=== PATIENT | female | born 1935 | race Caucasian/White ===

== ENCOUNTER 2017-08-31 13:29 | Inpatient (IN) | payer MEDICARE, BC ==
[~2017-08-31] VITALS: Ht 154.9 cm; Wt 71.7 kg
--- NOTE | 2017-08-31 13:50 | NUR ---
[facility] FROM [facility] C/O BILAT KNEE SWELLING X 4 DAYS. A/OX 1, BREATHING EVEN AND UNLABORED. NO SOB, NAD, VITALS STABLE. SAFETY AND COMFORT MEASURES IN PLACE. AWAITING MD ORDERS.
[2017-08-31] MEDS ORDERED: CHOL100044 PO (14:21)
[2017-08-31] MEDS ORDERED: GUAI100S27 PO (14:21)
[2017-08-31] MEDS ORDERED: NA P133E RC (14:21)
[2017-08-31] MEDS ORDERED: DOCU250C14 PO (14:21)
[2017-08-31] MEDS ORDERED: MULT-447 PO (14:21)
[2017-08-31] MEDS ORDERED: ESCI5TAB PO (14:21)
[2017-08-31] MEDS ORDERED: FESO4TAB PO (14:21)
[2017-08-31] MEDS ORDERED: MAGN400O6 PO (14:21)
[2017-08-31] MEDS ORDERED: VITA1TAB56 PO (14:21)
[2017-08-31] MEDS ORDERED: DONE5TAB34 PO (14:21)
[2017-08-31] MEDS ORDERED: PHEN26CR RC (14:21)
[2017-08-31] MEDS ORDERED: ACET-868 PO (14:21)
[2017-08-31] MEDS ORDERED: LEVO100T9 PO (14:21)
[2017-08-31] MEDS ORDERED: QUET25TA PO ×2 (14:21→14:22)
--- NOTE | 2017-08-31 14:40 | NUR ---
NEW IV STARTED ON LAC, 20G. BLOOD DRAWN AND SENT TO LAB.
--- NOTE | 2017-08-31 14:45 | NUR ---
MANAGER SOURCING AT BEDSIDE.
[2017-08-31 14:59] LABS: BASOPHILS % (AUTO) 0.5 % (0.0-2.0); EOSINOPHILS % (AUTO) 3.3 % (0.0-6.0); HEMATOCRIT 34 % (33-45); HEMOGLOBIN 11.8 g/dL (11.5-14.8); LYMPHOCYTES # (AUTO) 1.2 /CMM (0.8-4.8); LYMPHOCYTES % (AUTO) 14.1 % (20.0-44.0); MEAN CORPUSCULAR HGB CONC 35 g/dl (31.0-36.0); MEAN CORPUSCULAR VOLUME 89 fL (82-100); MONOCYTES # (AUTO) 0.6 /CMM (0.1-1.30); MONOCYTES % (AUTO) 7.5 % (2.0-12.0); NEUTROPHILS # (AUTO) 6.2 /CMM (1.8-8.9); NEUTROPHILS % (AUTO) 74.6 % (43.0-81.0); PLATELET COUNT (AUTO) 324 /CMM (150-450); RDW COEFFICIENT OF VARIATION 11.7 (11.5-15.0); WHITE BLOOD COUNT (AUTO) 8.4 K/uL (4.3-11.0)
[2017-08-31 15:10] LABS: CALCIUM, SERUM 9.1 mg/dL (8.5-10.1); CARBON DIOXIDE 23 mmol/L (21-32); CHLORIDE 106 mmol/L (98-107); CREATININE 0.9 mg/dL (0.6-1.3); GLUCOSE 85 mg/dL (74-106); POTASSIUM 3.4 mmol/L (3.5-5.1); SODIUM SERUM 139 mmol/L (136-145); UREA NITROGEN, BLOOD 18 mg/dL (7-18)
[2017-08-31 15:49] LABS: INR 1.04 (0.87-1.13)
[2017-08-31] MEDS ORDERED: HEPARIN SODIUM, PORCINE 5000 UNITS/1 ML VIAL ONE (15:53)
[2017-08-31] MEDS ORDERED: HEPARIN SODIUM, PORCINE 5000 UNITS/1 ML VIAL IV ONE (16:00)
--- NOTE | 2017-08-31 16:17 | NUR ---
BED 313-1
--- NOTE | 2017-08-31 16:28 | NUR ---
REPORT GIVEN TO GEORGE MCWILLIAMS FOR CE UPON ADMISSION
--- NOTE | 2017-08-31 16:38 | NUR ---
RN NOTES RECEIVED ED REPORT FROM POPPY MOORE VIA PHONE.
--- NOTE | 2017-08-31 17:20 | NUR ---
PATIENT TRANSPORTED TO [facility] VIA ACLS PROTOCOL. RNGEORGE TO PROVIDE CE.
[2017-08-31 17:42] VITALS: BP 144/76
[2017-08-31] MEDS ORDERED: Z GUARD REMEDY 2 OZ OINT TP PRN ×2 (18:30→20:30)
--- NOTE | 2017-08-31 19:30 | NUR ---
MS RN NOTES RECEIVED ON BED A/O X2-3,BREATHING REGULAR, AT BEDSIDE,SALINE LOCK LAC INTACT AND PATENT.LEFT LEG SWOLLEN NOTED.CONSUMED DINNER FOOD 100%,ASSISTED WITH FEEDING BY .CALL LIGHT IN REACH,NEEDS ANTICIPATED.
--- NOTE | 2017-08-31 19:52 | NUR ---
CERTIFIED NURSES' AIDE/CLOSING NOTES PT. IS IN BED A&OX1, CONFUSED. PT.'S IS AT BEDSIDE. BREATHING UNLABORED, AND EVENLY ON ROOM AIR. IV ACCESS ON LEFT ANTECUBITAL SITE IS INTACT, AND PATENT WITH SALINE FLUSH. BED ALARM IS ON. LEFT LEG IS WARM, AND SWOLLEN, LEFT ANKLE HAS 1+ PITTING EDEMA, AND LEFT FOOT HAS 3+ PITTING EDEMA. BED IS IN LOWEST, AND LOCKED POSITION. 2 SIDE RAILS UP, AND CALL LIGHT WITHIN REACH. WILL ENDORSE REPORT TO NURSE. CODE STATUS WAS ORDERED FOR PT.
[2017-08-31 20:00] VITALS: BP_SYST 121; BP_SYST 123; BP_DIAS 72; BP_DIAS 87
[2017-08-31] MEDS ORDERED: QUETIAPINE FUMARATE 25 MG TABLET PO PRN (20:30)
[2017-08-31] MEDS ORDERED: MAGNESIUM HYDROXIDE 30 ML UDC PO PRN (20:30)
[2017-08-31] MEDS ORDERED: ACETAMINOPHEN 325 MG TABLET PO PRN (20:30)
[2017-08-31] MEDS ORDERED: ONDANSETRON HCL/PF 4 MG/2 ML VIAL IVP PRN (20:30)
--- NOTE | 2017-08-31 21:00 | NUR ---
MS RN NOTES STARTED ON XARELTO 15MG PO ORDERED FOR DVT PROHYLAXIS.
[2017-08-31] MEDS: RIVAROXABAN 15 MG TABLET PO SCH (21:27)
[2017-08-31 22:08] VITALS: BP 121/87
[2017-09-01] VITALS: BP 132/62
--- NOTE | 2017-09-01 01:00 | NUR ---
MS RN NOTES SOUND ASLEEP,KEPT WARM AND COMFORTABLE.
--- NOTE | 2017-09-01 06:33 | NUR ---
MS RN NOTES SLEPT WELL AT [facility].LEFT LEG REMAINS SWOLLEN.DENIES PAIN,DNR/DNI.IN NO ACUTE DISTRESS.WILL ENDORSE TO DAY NURSE FOR CE.
[2017-09-01 06:44] LABS: BASOPHILS % (AUTO) 0.7 % (0.0-2.0); EOSINOPHILS % (AUTO) 6.4 % (0.0-6.0); HEMATOCRIT 34 % (33-45); HEMOGLOBIN 11.7 g/dL (11.5-14.8); LYMPHOCYTES # (AUTO) 1.3 /CMM (0.8-4.8); LYMPHOCYTES % (AUTO) 20.4 % (20.0-44.0); MEAN CORPUSCULAR HGB CONC 35 g/dl (31.0-36.0); MEAN CORPUSCULAR VOLUME 90 fL (82-100); MONOCYTES # (AUTO) 0.5 /CMM (0.1-1.30); MONOCYTES % (AUTO) 8.3 % (2.0-12.0); NEUTROPHILS # (AUTO) 4.2 /CMM (1.8-8.9); NEUTROPHILS % (AUTO) 64.2 % (43.0-81.0); PLATELET COUNT (AUTO) 293 /CMM (150-450); RDW COEFFICIENT OF VARIATION 12.3 (11.5-15.0); RED BLOOD CELL COUNT(AUTO) 3.76 MIL/uL (4.0-5.2); WHITE BLOOD COUNT (AUTO) 6.5 K/uL (4.3-11.0)
[2017-09-01 07:08] LABS: ALANINE AMINOTRANSFERASE 20 U/L (12-78); ALBUMIN 2.8 g/dL (3.4-5.0); ALKALINE PHOSPHATASE 70 U/L (46-116); ASPARTATE AMINOTRANSFERASE 21 U/L (15-37); BILIRUBIN,TOTAL 0.3 mg/dL (0.2-1.0); CALCIUM, SERUM 8.9 mg/dL (8.5-10.1); CARBON DIOXIDE 25 mmol/L (21-32); CHLORIDE 107 mmol/L (98-107); CREATININE 0.8 mg/dL (0.6-1.3); GLUCOSE 83 mg/dL (74-106); MAGNESIUM 3.1 mg/dL (1.8-2.4); PHOSPHORUS 3.8 mg/dL (2.5-4.9); POTASSIUM 3.5 mmol/L (3.5-5.1); SODIUM SERUM 140 mmol/L (136-145); TOTAL PROTEIN, SERUM 6.9 g/dL (6.4-8.2); UREA NITROGEN, BLOOD 16 mg/dL (7-18)
[2017-09-01 07:15] LABS: CHOLESTEROL 217 mg/dL (<200); HDL CHOLESTEROL 57 mg/dL (40-60); LDL 150 mg/dL (0-99); THYROID STIMULATING HORMONE 1.965 uIU/mL (0.358-3.74); TRIGLYCERIDES 56 mg/dL (30-150)
--- NOTE | 2017-09-01 07:27 | NUR ---
RN OPENING NOTES RECEIVED PT. IN BED A&OX1, CONFUSED. BREATHING UNLABORED, AND EVENLY ON ROOM AIR. IV ACCESS ON LEFT ANTECUBITAL SITE IS INTACT, AND PATENT WITH SALINE FLUSH. BED ALARM IS ON. BED IS IN LOWEST, AND LOCKED POSITION. 2 SIDE RAILS UP, AND CALL LIGHT WITHIN REACH. WILL CONTINUE TO ASSESS AND MONITOR.
[2017-09-01] MEDS: LEVOTHYROXINE SODIUM 100 MCG TABLET PO SCH (07:35)
[2017-09-01] MEDS: PANTOPRAZOLE 40 MG TABLET.DR PO SCH (07:35)
[2017-09-01 07:57] LABS: IRON, SERUM 55 ug/dl (50-175); TOTAL IRON BINDING CAPACITY 218 ug/dl (250-450)
[2017-09-01 08:00] VITALS: BP 130/66
[2017-09-01] MEDS: DONEPEZIL 5 MG TABLET PO SCH ×2 (09:11→16:50)
[2017-09-01] MEDS: RIVAROXABAN 15 MG TABLET PO SCH ×2 (09:12→16:50)
[2017-09-01] MEDS: ESCITALOPRAM OXALATE (10 MG) 10 MG TABLET PO SCH (09:12)
--- NOTE | 2017-09-01 12:16 | NUR ---
POWER OF METAL LEAF LAYER DOCUMENTS WERE PROVIDED BY PT.'S , CORNEL RAHMAN, AND PLACED IN CHART.
[2017-09-01 16:00] VITALS: BP 126/69
[2017-09-01] MEDS ORDERED: QUETIAPINE FUMARATE 25 MG TABLET PO SCH (18:00)
--- NOTE | 2017-09-01 18:56 | NUR ---
RN CLOSING NOTES PT. IS IN BED A&OX1, CONFUSED. PT.'S IS AT BEDSIDE. BREATHING IS UNLABORED, AND EVEN ON ROOM AIR. IV ACCESS ON LEFT ANTECUBITAL SITE IS INTACT, AND PATENT WITH SALINE FLUSH. BED ALARM IS ON. BED IS IN LOWEST, AND LOCKED POSITION. 2 SIDE RAILS UP, AND CALL LIGHT WITHIN REACH. WILL ENDORSE REPORT TO NURSE.
[2017-09-01 19:48] VITALS: BP 129/60
--- NOTE | 2017-09-01 19:50 | NUR ---
MS RN NOTES RECEIVED ON BED A/O X1-2,CONFUSED.LEFT LEG WITH +2 EDEMA NOTED,POSITIVE FOR DVT,ON XARELTO. AT BEDSIDE AT BEDSIDE.CALL LIGHT IN REACH,NEEDS ANTICIPATED.
[2017-09-01 20:00] VITALS: BP 129/60
--- NOTE | 2017-09-02 01:00 | NUR ---
MS MCWILLIAMS NOTES BODY CHECKED DONE .NEGATIVE FOR SKIN REDNESS.LEFT SWELLING SUBSIDING.CONTINUE TO ELEVATE ON PILLOWS Addendum: 09/02/17 at 0610 by MELVIN SINGH RN LEFT LOWER LEG SWELLING DECREASED
--- NOTE | 2017-09-02 06:10 | NUR ---
MS RN NOTES CALM AND QUIET THRU OUT SHIFT.NO FALL,NO INJURY.HAD BM.REPOSITION PER PROTOCOL,RIGHT INNER THIGH REDNESS SUBSIDED.IN NO ACUTE DISTRESS.WILL ENDORSE TO DAY NURSE FOR CE.
[2017-09-02 06:20] LABS: BASOPHILS % (AUTO) 0.4 % (0.0-2.0); HEMATOCRIT 33 % (33-45); HEMOGLOBIN 11.4 g/dL (11.5-14.8); LYMPHOCYTES # (AUTO) 1.5 /CMM (0.8-4.8); LYMPHOCYTES % (AUTO) 19.2 % (20.0-44.0); MEAN CORPUSCULAR HGB CONC 35 g/dl (31.0-36.0); MEAN CORPUSCULAR VOLUME 89 fL (82-100); MONOCYTES # (AUTO) 0.7 /CMM (0.1-1.30); MONOCYTES % (AUTO) 8.7 % (2.0-12.0); NEUTROPHILS # (AUTO) 5.1 /CMM (1.8-8.9); NEUTROPHILS % (AUTO) 65.7 % (43.0-81.0); PLATELET COUNT (AUTO) 286 /CMM (150-450); RDW COEFFICIENT OF VARIATION 12.4 (11.5-15.0); RED BLOOD CELL COUNT(AUTO) 3.65 MIL/uL (4.0-5.2); WHITE BLOOD COUNT (AUTO) 7.8 K/uL (4.3-11.0)
[2017-09-02 06:51] LABS: CALCIUM, SERUM 8.9 mg/dL (8.5-10.1); CARBON DIOXIDE 24 mmol/L (21-32); CHLORIDE 108 mmol/L (98-107); CREATININE 0.9 mg/dL (0.6-1.3); GLUCOSE 83 mg/dL (74-106); MAGNESIUM 2.1 mg/dL (1.8-2.4); PHOSPHORUS 3.7 mg/dL (2.5-4.9); POTASSIUM 3.9 mmol/L (3.5-5.1); SODIUM SERUM 140 mmol/L (136-145); UREA NITROGEN, BLOOD 15 mg/dL (7-18)
[2017-09-02 08:00] VITALS: BP 134/53
--- NOTE | 2017-09-02 08:00 | NUR ---
m/s clutch inspector: initial assessment received pt in bed awake, alert to self only with confusion and disorientation to time, place, and situation. reality orientation provided prn. no s/s of discomfort. instructed to call for assistance. will continue to monitor.
[2017-09-02] MEDS: LEVOTHYROXINE SODIUM 100 MCG TABLET PO SCH (08:12)
[2017-09-02] MEDS: ESCITALOPRAM OXALATE (10 MG) 10 MG TABLET PO SCH (08:13)
[2017-09-02] MEDS: PANTOPRAZOLE 40 MG TABLET.DR PO SCH (08:13)
[2017-09-02] MEDS: RIVAROXABAN 15 MG TABLET PO SCH (08:13)
[2017-09-02] MEDS: DONEPEZIL 5 MG TABLET PO SCH (08:13)
--- NOTE | 2017-09-02 09:59 | NUR ---
WOUND CARE CONSULT: PT PRESENTS WITH INCONTINENCE. PT ABLE TO ASSIST SLIGHTLY WITH TURNING AND REPOSITIONING IN BED. ALL SKIN PROTECTION MEASURES IN PLACE AND DISCUSSED WITH NURSING STAFF. WILL SEE PRN. BECKHAM IN AGREEMENT WITH PLAN OF CARE. Addendum: 09/02/17 at 1000 by LISA LERMA WNDNU Amended: Links added.
[2017-09-02] MEDS ORDERED: Rivaroxaban PO (12:44)
--- NOTE | 2017-09-02 12:44 | NUR ---
m/s laborer chicken farm: md visit dr. gross at bedside and talking to and aware of d'c to assisted living today. order acknowledged.
--- NOTE | 2017-09-02 13:00 | NUR ---
m/s sunday school missionary: notes kierra (case management) arranged ambulance to bring pt to assisted living facility. remains at bedside and aware.
--- NOTE | 2017-09-02 13:30 | NUR ---
m/s aluminum molder: notes remains at bedside. awaiting for ambulance. pt unable to sign discharge papers due to cognitive impairment. 2 licensed signed all d'c papers. will continue to monitor.
--- NOTE | 2017-09-02 13:42 | NUR ---
m/s load tester: notes [facility] notified and made aware re: d'c back today, spoke to asha. remains at bedside. will continue to monitor.
--- NOTE | 2017-09-02 14:00 | NUR ---
m/s pharmacist technician: notes [facility] reminder for next week given to and will arrange transportation as stated.
--- NOTE | 2017-09-02 15:15 | NUR ---
m/s bearing machine operator: notes ambulance here and report given to one of the crew. h/l removed with tip intact with no swelling, no redness, and no bleeding noted.
--- NOTE | 2017-09-02 15:30 | NUR ---
m/s web retailer: discharged discharged back to assisted living facility via ambulance in stable condition with all d'c papers and belongings accompanied by 3 crew.
== END 2017-09-02 15:30 | DRG 299 ==
LOC: ER 13:34 → TELE 16:25 → MED 21:19
PROVIDERS: ADMIT Nurse Practitioner Acute Care; ATTEND Nurse Practitioner Acute Care
DX: I82.432 Acute embolism and thrombosis of left popliteal vein (principal); I62.00 Nontraumatic subdural hemorrhage, unspecified; I82.412 Acute embolism and thrombosis of left femoral vein; G30.9 Alzheimer's disease, unspecified; F02.80 Dementia in other diseases classified elsewhere, unspecified severity, without behavioral disturbance, psychotic disturbance, mood disturbance, and anxiety; R00.1 Bradycardia, unspecified; Z91.040 Latex allergy status; Z88.5 Allergy status to narcotic agent; Z91.048 Other nonmedicinal substance allergy status; Z79.899 Other long term (current) drug therapy; F32.9 Major depressive disorder, single episode, unspecified; E66.9 Obesity, unspecified; Z68.29 Body mass index [BMI] 29.0-29.9, adult; I10 Essential (primary) hypertension
CPT/HCPCS: 36415; 71045-TC; 80048-TC; 80053-TC; 80061-TC; 83540-TC; 83735-TC; 84100-TC; 84443-TC; 85025-TC; 85730-TC; 87081-TC; 93307-TC; 93971-TC; A4606; J1644; Z7610

== ENCOUNTER 2019-01-15 01:04 | Emergency (ER) | payer MEDICARE, BC ==
[~2019-01-15] VITALS: Ht 154.9 cm; Wt 69.9 kg
[~2019-01-15 01:04] MED LIST: ACET-868 PO; CHOL100044 PO; DOCU250C14 PO; DONE5TAB34 PO; ESCI5TAB PO; FESO4TAB PO; LEVO100T9 PO; MAGN400O6 PO; MULT-447 PO; NA P133E RC; PHEN26CR RC; QUET25TA PO; Rivaroxaban PO; VITA1TAB56 PO; [UNRECOGNIZED DRUG - CODE] PO
[2019-01-15] MEDS ORDERED: MORPHINE SULFATE INJ 4 MG/ML DISP.SYRIN ONE (01:43)
--- NOTE | 2019-01-15 01:45 | NUR ---
BIBA FOR EVALUATION OF BACK PAIN. PER , PT HAS BEEN UNCOMFORTABLE AND MOANING SINC EVENING . PT HAS A COMPRESSION FRACTURE ON LOWER VERTEBRAE SINCE 2 YRS AGO. NO RECENT FALL OR INJURY. PER AL STAFF, PT HAS MORE SIGN OF PAIN WHEN LEANING FORWARD.
[2019-01-15] MEDS ORDERED: MORPHINE SULFATE INJ 2 MG/ML DISP.SYRIN IM ONE (02:00)
--- NOTE | 2019-01-15 02:45 | NUR ---
TRANSPORT CALLED ([facility]) ETA [id number]. TRIP#[id number]
--- NOTE | 2019-01-15 03:36 | NUR ---
Patient is resting comfortably in bed with eyes closed. Easily aroused. VSS
--- NOTE | 2019-01-15 03:47 | NUR ---
REPORT GIVEN TO EMT FROM [facility]
--- NOTE | 2019-01-15 04:06 | NUR ---
Patient discharged back to the facility in stable condition. pt was picked up by kasandra via [facility]. Written and verbal after care instructions given. verbalized understanding of instruction.
[2019-01-15 04:07] VITALS: BP 151/82
[2019-02-06] MEDS ORDERED: CEPH-570 PO (11:23)
== END 2019-01-15 04:08 | disposition home or self-care (01) ==
LOC: ER 01:05
DX: M54.5 Low back pain (principal); G89.29 Other chronic pain; G30.9 Alzheimer's disease, unspecified; F02.80 Dementia in other diseases classified elsewhere, unspecified severity, without behavioral disturbance, psychotic disturbance, mood disturbance, and anxiety; R00.1 Bradycardia, unspecified; I10 Essential (primary) hypertension; Z88.5 Allergy status to narcotic agent; Z91.040 Latex allergy status; Z91.048 Other nonmedicinal substance allergy status
CPT/HCPCS: 72100; 96372; 99283; J2270

== ENCOUNTER 2019-02-03 19:35 | Inpatient (IN) | payer MEDICARE, BC ==
[~2019-02-03] VITALS: Ht 152.4 cm; Wt 71.7 kg
[~2019-02-03 19:35] MED LIST changes: +GUAI100S27 PO; -[UNRECOGNIZED DRUG - CODE] PO
--- NOTE | 2019-02-03 19:35 | NUR ---
PT BIBRA FROM FACILITY C/O FEVER STARTED 5 HRS AGO, PT IS AAOX1, NOT IN RESPIRATORY DISTRESS, HOOKED TO MONITOR, KEPT RESTED AND COMFORTABLE, WILL CONTINUE TO MONITOR.
--- NOTE | 2019-02-03 19:44 | NUR ---
SEEN AND EXAMINED BY .
--- NOTE | 2019-02-03 19:50 | NUR ---
IV LINE ESTABLISHED, BLOOD DRAWN AND SENT TO LAB.
[2019-02-03] MEDS ORDERED: ACETAMINOPHEN 650 MG/SUPP.RECT RC ONE ×2 (20:00→20:02)
[2019-02-03] MEDS ORDERED: IV NS 0.9% 1,000 ML BAG IV ONE (20:00)
[2019-02-03 20:05] LABS: BASOPHILS # (AUTO) 0.1 /CMM (0.0-0.2); EOSINOPHILS % (AUTO) 1.1 % (0.0-6.0); HEMATOCRIT 41 % (33-45); HEMOGLOBIN 13.7 g/dL (11.5-14.8); LYMPHOCYTES # (AUTO) 1.1 /CMM (0.8-4.8); LYMPHOCYTES % (AUTO) 12.6 % (20.0-44.0); MEAN CORPUSCULAR HGB CONC 34 g/dl (31.0-36.0); MEAN CORPUSCULAR VOLUME 93 fL (82-100); MONOCYTES # (AUTO) 0.5 /CMM (0.1-1.30); MONOCYTES % (AUTO) 6.1 % (2.0-12.0); NEUTROPHILS # (AUTO) 6.6 /CMM (1.8-8.9); NEUTROPHILS % (AUTO) 79.2 % (43.0-81.0); PLATELET COUNT (AUTO) 240 /CMM (150-450); WHITE BLOOD COUNT (AUTO) 8.4 K/uL (4.3-11.0)
[2019-02-03 20:15] LABS: CARBON DIOXIDE 22 mmol/L (21-32); CHLORIDE 106 mmol/L (98-107); GLUCOSE 133 mg/dL (74-106); POTASSIUM 3.2 mmol/L (3.5-5.1); SODIUM SERUM 141 mmol/L (136-145); UREA NITROGEN, BLOOD 23 mg/dL (7-18)
[2019-02-03 20:20] LABS: CALCIUM, SERUM 8.9 mg/dL (8.5-10.1)
--- NOTE | 2019-02-03 20:21 | NUR ---
URINE SPECIMEN COLLECTED AND SENT TO LAB.
[2019-02-03 20:22] LABS: ALANINE AMINOTRANSFERASE 20 U/L (12-78); ALBUMIN 3.5 g/dL (3.4-5.0); ALKALINE PHOSPHATASE 108 U/L (46-116); ASPARTATE AMINOTRANSFERASE 22 U/L (15-37); BILIRUBIN,DIRECT 0.1 mg/dL (0.0-0.2); BILIRUBIN,TOTAL 0.3 mg/dL (0.2-1.0); TOTAL PROTEIN, SERUM 7.4 g/dL (6.4-8.2)
[2019-02-03] MEDS ORDERED: RIVA10TA PO (20:29)
--- NOTE | 2019-02-03 20:30 | NUR ---
SOFA INSPECTOR AT BEDSIDE FOR XRAY.
[2019-02-03 20:35] LABS: APPEARANCE,URINE Cloudy (CLEAR); BILIRUBIN,URINE Negative (NEGATIVE); BLOOD, URINE Moderate Ery/uL (NEGATIVE); COLOR,URINE Yellow (YELLOW); KETONES,URINE Negative (NEGATIVE); LEUKOCYTE ESTERASE ,URINE Moderate (NEGATIVE); NITRITE, URINE Positive (NEGATIVE); PH,URINE 5.5 (5.0-8.0); PROTEIN,URINE Negative (NEGATIVE); UGLUCOSE Negative (NEGATIVE)
[2019-02-03 20:42] LABS: BACTERIA,URINE 4+ /HPF (None Seen); SQUAMOUS EPITHELIAL CELL,UR Few /HPF (None Seen); WBC,URINE 51-80 /HPF (0-3)
[2019-02-03] MEDS ORDERED: CEFTRIAXONE 1GM BAG (ER ONLY) 50 ML IV ONE ×2 (20:51→21:00)
--- NOTE | 2019-02-03 21:13 | NUR ---
CALLED FOR TELE BED
--- NOTE | 2019-02-03 21:36 | NUR ---
REPORT GIVEN TO POPPY TROTTER FOR CE.
--- NOTE | 2019-02-03 21:45 | NUR ---
WALL WASHER NOTES RECEIVED PT FROM ER VIA [facility] WITH FAMILY AT BEDSIDE. RESPIRATIONS EVEN AND UNLABORED WITH NO S/S OF ACUTE DISTRESS OR SOB NOTED. PT ON TELE MONITORING WITH SR @63. NO S/S OF PAIN AT THIS TIME. PT WITH AMEENA #18G PATENT AND INTACT AND SL. ORIENTED FAMILY TO UNIT AND STAFF. PER FAMILY PT NEEDS HELP WITH EATING. SAFETY MEASURES IN PLACE WITH BED IN LOWEST LOCKED POSITION WITH SIDE RAILS UP X2. CALL LIGHT WITHIN REACH. WILL CONTINUE TO MONITOR.
[2019-02-03 21:50] VITALS: BP 146/71
[2019-02-03] MEDS ORDERED: NA PHOS,M-B/NA PHOS,DI-BA 1 EA ENEMA RC PRN (23:00)
[2019-02-03] MEDS ORDERED: MORPHINE SULFATE INJ 2 MG/ML DISP.SYRIN IV PRN (23:00)
[2019-02-03] MEDS ORDERED: ONDANSETRON HCL/PF 4 MG/2 ML VIAL IVP PRN (23:00)
[2019-02-03] MEDS ORDERED: ACETAMINOPHEN 325 MG TABLET PO PRN ×2 (23:00)
[2019-02-03] MEDS ORDERED: MAGNESIUM HYDROXIDE 30 ML UDC PO PRN (23:00)
[2019-02-04 00:01] VITALS: BP 143/77
[2019-02-04 04:05] VITALS: BP 156/76
[2019-02-04 06:35] LABS: BASOPHILS # (AUTO) 0.1 /CMM (0.0-0.2); BASOPHILS % (AUTO) 0.8 % (0.0-2.0); EOSINOPHILS % (AUTO) 2.4 % (0.0-6.0); HEMATOCRIT 34 % (33-45); HEMOGLOBIN 11.8 g/dL (11.5-14.8); LYMPHOCYTES # (AUTO) 1.6 /CMM (0.8-4.8); LYMPHOCYTES % (AUTO) 20.9 % (20.0-44.0); MEAN CORPUSCULAR HGB CONC 35 g/dl (31.0-36.0); MEAN CORPUSCULAR VOLUME 92 fL (82-100); MONOCYTES # (AUTO) 0.7 /CMM (0.1-1.30); MONOCYTES % (AUTO) 8.7 % (2.0-12.0); NEUTROPHILS # (AUTO) 5.2 /CMM (1.8-8.9); NEUTROPHILS % (AUTO) 67.2 % (43.0-81.0); PLATELET COUNT (AUTO) 216 /CMM (150-450); WHITE BLOOD COUNT (AUTO) 7.8 K/uL (4.3-11.0)
[2019-02-04 07:11] LABS: CHOLESTEROL 196 mg/dL (<200); HDL CHOLESTEROL 67 mg/dL (40-60); LDL 118 mg/dL (0-99); THYROID STIMULATING HORMONE 0.904 uIU/mL (0.358-3.74); TRIGLYCERIDES 26 mg/dL (30-150)
[2019-02-04 07:23] LABS: ALANINE AMINOTRANSFERASE 16 U/L (12-78); ALBUMIN 2.8 g/dL (3.4-5.0); ALKALINE PHOSPHATASE 86 U/L (46-116); ASPARTATE AMINOTRANSFERASE 19 U/L (15-37); B-TYPE NATRIURETIC PEPTIDE 330 PG/ML (0-125); BILIRUBIN,TOTAL 0.3 mg/dL (0.2-1.0); CALCIUM, SERUM 8.5 mg/dL (8.5-10.1); CARBON DIOXIDE 22 mmol/L (21-32); CHLORIDE 110 mmol/L (98-107); CREATININE 0.7 mg/dL (0.6-1.3); GLUCOSE 85 mg/dL (74-106); MAGNESIUM 1.9 mg/dL (1.8-2.4); PHOSPHORUS 2.9 mg/dL (2.5-4.9); POTASSIUM 3.1 mmol/L (3.5-5.1); SODIUM SERUM 144 mmol/L (136-145); TOTAL PROTEIN, SERUM 6.3 g/dL (6.4-8.2); UREA NITROGEN, BLOOD 17 mg/dL (7-18)
--- NOTE | 2019-02-04 07:40 | NUR ---
HISTORIOGRAPHY PROFESSOR NOTES PATIENT RECEIVED RESTING INSIDE ROOM. SLEEPING, EASILY AROUSABLE THROUGH VERBAL AND TACTILE STIMULI. NO ACUTE DISTRESS. DENIES ANY PAIN OR DISCOMFORT. PATIENT CALM AND RELAXED. SAFETY PRECAUTIONS IN PLACE. BED ALARM ON. WILL CONTINUE TO MONITOR. BED LOCKED AND IN LOW POSITION. BILATERAL UPPER SIDE RAILS UP AND LOCKED. CALL LIGHT WITHIN EASY REACH
--- NOTE | 2019-02-04 07:59 | NUR ---
MICROFILM CLERK NOTES PATIENT WITH NEW ORDER FROM DR LUNA FOR LOVENOX. DR LUNA MADE AWARE THAT PATIENT IS ALREADY ON XARELTO DAILY. WITH NEW ORDER TO DC LOVENOX. NOTED AND CARRIED OUT. WILL CONTINUE TO MONITOR
[2019-02-04 08:00] VITALS: BP 160/80
[2019-02-04] MEDS ORDERED: ENOXAPARIN SODIUM 40 MG/0.4 ML DISP.SYRIN SQ SCH (08:00)
--- NOTE | 2019-02-04 08:07 | NUR ---
FURNITURE SANDER NOTES PT IN BED ASLEEP BUT EASILY AWOKEN VERBALLY OR BY TOUCH. RESPIRATIONS EVEN AND UNLABORED WITH NO S/S OF ACUTE DISTRESS OR SOB NOTED THROUGHOUT SHIFT. PT ON TELE MONITORING WITH SR @61. NO S/S OF PAIN AT THIS TIME. PT WITH LHAND #18G PATENT AND INTACT AND SL. TURNED PT Q2 HOURS THROUGHOUT SHIFT. PT KEPT CLEAN, DRY, AND COMFORTABLE. SAFETY MEASURES IN PLACE WITH BED IN LOWEST LOCKED POSITION WITH SIDE RAILS UP X2. CALL LIGHT WITHIN REACH. WILL ENDORSE TO ONCOMING NURSE FOR CE.
[2019-02-04] MEDS: MULTIVIT W/MINERALS 1 TAB TABLET PO SCH (08:36)
[2019-02-04] MEDS: POTASSIUM CHLORIDE 20 MEQ TAB.PRT.SR PO SCH ×3 (08:36→10:38)
[2019-02-04] MEDS: CHOLECALCIFEROL 1,000 UNIT TABLET (VIT D3) PO SCH (08:36)
[2019-02-04] MEDS: ESCITALOPRAM OXALATE (10 MG) 10 MG TABLET PO SCH (08:36)
[2019-02-04] MEDS: DONEPEZIL 5 MG TABLET PO SCH ×2 (08:36→16:25)
[2019-02-04] MEDS: LEVOTHYROXINE SODIUM 100 MCG TABLET PO SCH (08:36)
[2019-02-04] MEDS: RIVAROXABAN 10 MG TABLET PO SCH (08:37)
[2019-02-04] MEDS ORDERED: Medication Not On Formulary EA (Fesoterodine Fumarate (Toviaz) 4 MG) PO SCH (09:00)
[2019-02-04] MEDS ORDERED: DOCUSATE SODIUM 250 MG CAPSULE PO SCH (09:00)
--- NOTE | 2019-02-04 09:14 | NUR ---
WOUND CARE CONSULT: PT PRESENTS WITH INTACT SKIN, SOME DISCOLORATION TO FOREHEAD AND LEFT ARM, PRESENT ON ADMISSION. PT IS INCONTINENT. RECOMMENDATIONS MADE FOR SKIN PROTECTION. DISCUSSED WITH NURSING STAFF. WILL SEE PRN. CURRENT NIKIA SCORE IS 13. MD IN AGREEMENT WITH PLAN OF CARE. Addendum: 02/04/19 at 0916 by LISA LERMA WNDNU Amended: Links added.
[2019-02-04] MEDS ORDERED: Z GUARD REMEDY 2 OZ OINT TP PRN (09:30)
[2019-02-04] MEDS: Z GUARD REMEDY 2 OZ OINT TP SCH (10:04)
[2019-02-04] MEDS: NITROGLYCERIN 30 GM TUBE TP SCH ×2 (10:05→21:01)
[2019-02-04 11:59] VITALS: BP 123/70
[2019-02-04] MEDS: TOVIAZ 4 MG PO SCH (13:47)
[2019-02-04 16:00] VITALS: BP 123/72
--- NOTE | 2019-02-04 18:52 | NUR ---
ORTHO/PROSTHETIC AIDE CLOSING NOTES PATIENT RESTING IN BED. AT THE BEDSIDE. SHOWS NO SIGN OF RESPIRATORY DISTRESS O2 SATURATION REMAINS >95% ON RA. NSR 82. ALL DUE MEDS GIVEN ORDERED. IV IS CLEAN AND INTACT SHOWS NO SIGN OF INFILTRATION. BED IS IN LOWEST POSITION. SIDE RAILS X2 IN UPRIGHT POSITION. CALL LIGHT IS WITHIN REACH. WILL ENDORSE TO PYRIDINE OPERATOR.
--- NOTE | 2019-02-04 19:32 | NUR ---
RN OPENING NOTES RECEIVED PT IN BED, AWAKE ALERT ORIENTED X1, AT BEDSIDE. BREATHING EVEN AND UNLABORED ON ROOM AIR. NO COMPLAINT OF PAIN OR DISCOMFORT AT THIS TIME. IV ACCESS ON THE L HAND 18G SL. BED IN LOWEST LOCKED POSITION, CALL LIGHT WITHIN REACH AT ALL TIMES, REPOSITIONED FOR COMFORT, WILL CONTINUE TO MONITOR FREQUENTLY.
[2019-02-04 20:00] VITALS: BP 140/75
[2019-02-04] MEDS: CEFTRIAXONE 1 G in IV D5W 50 ML IV SCH (20:44)
[2019-02-05] VITALS: BP 113/61
[2019-02-05 04:00] VITALS: BP 122/64
[2019-02-05 06:31] LABS: BASOPHILS % (AUTO) 0.7 % (0.0-2.0); HEMATOCRIT 34 % (33-45); HEMOGLOBIN 11.7 g/dL (11.5-14.8); LYMPHOCYTES # (AUTO) 1.2 /CMM (0.8-4.8); LYMPHOCYTES % (AUTO) 16.7 % (20.0-44.0); MEAN CORPUSCULAR HGB CONC 35 g/dl (31.0-36.0); MEAN CORPUSCULAR VOLUME 92 fL (82-100); MONOCYTES # (AUTO) 0.7 /CMM (0.1-1.30); MONOCYTES % (AUTO) 10.4 % (2.0-12.0); NEUTROPHILS # (AUTO) 4.8 /CMM (1.8-8.9); NEUTROPHILS % (AUTO) 68.2 % (43.0-81.0); PLATELET COUNT (AUTO) 196 /CMM (150-450); RED BLOOD CELL COUNT(AUTO) 3.67 MIL/uL (4.0-5.2); WHITE BLOOD COUNT (AUTO) 7.1 K/uL (4.3-11.0)
--- NOTE | 2019-02-05 06:49 | NUR ---
RN CLOSING NOTES PT REMAINS IN BED, SLEEPING, EASILY AROUSED TO NAME CALL. BREATHING EVEN AND UNLABORED ON ROOM AIR. NO COMPLAINT OF PAIN OR DISCOMFORT AT THIS TIME. IV ACCESS ON THE L WRIST 20G. BED IN LOWEST LOCKED POSITION, CALL LIGHT WITHIN REACH AT ALL TIMES, REPOSITIONED FOR COMFORT, WILL ENDORSE TO DAY NURSE FOR CE
[2019-02-05 06:51] LABS: ALANINE AMINOTRANSFERASE 17 U/L (12-78); ALBUMIN 2.9 g/dL (3.4-5.0); ALKALINE PHOSPHATASE 86 U/L (46-116); ASPARTATE AMINOTRANSFERASE 16 U/L (15-37); BILIRUBIN,TOTAL 0.4 mg/dL (0.2-1.0); CALCIUM, SERUM 8.4 mg/dL (8.5-10.1); CARBON DIOXIDE 22 mmol/L (21-32); CHLORIDE 109 mmol/L (98-107); CREATININE 0.8 mg/dL (0.6-1.3); GLUCOSE 83 mg/dL (74-106); MAGNESIUM 1.9 mg/dL (1.8-2.4); PHOSPHORUS 2.9 mg/dL (2.5-4.9); POTASSIUM 3.5 mmol/L (3.5-5.1); SODIUM SERUM 143 mmol/L (136-145); TOTAL PROTEIN, SERUM 6.3 g/dL (6.4-8.2); UREA NITROGEN, BLOOD 13 mg/dL (7-18)
--- NOTE | 2019-02-05 07:31 | NUR ---
TICKET COLLECTOR NOTES PATIENT RECEIVED RESTING INSIDE ROOM. AWAKE, ALERT AND ORIENTED X 0-1. VERBALLY RESPONSIVE WITH 1-2 WORDS, NO ACUTE DISTRESS, DENIES ANY PAIN OR DISCOMFORT, NO FACIAL GRIMACE NOTED. PATIENT CALM AND RELAXED. SAFETY PRECAUTIONS IN PLACE. WILL CONTINUE TO MONITOR. BED LOCKED AND IN LOW POSITION. BILATERAL UPPER SIDE RAIL UP AND LOCKED. CALL LIGHT WITHIN EASY REACH
[2019-02-05 08:00] VITALS: BP 145/84
[2019-02-05] MEDS: DOCUSATE SODIUM LIQ 100 MG/10 ML UDC PO SCH (08:38)
[2019-02-05] MEDS: MULTIVIT W/MINERALS 1 TAB TABLET PO SCH (08:46)
[2019-02-05] MEDS: LEVOTHYROXINE SODIUM 100 MCG TABLET PO SCH (08:46)
[2019-02-05] MEDS: DONEPEZIL 5 MG TABLET PO SCH ×2 (08:46→17:32)
[2019-02-05] MEDS: ESCITALOPRAM OXALATE (10 MG) 10 MG TABLET PO SCH (08:46)
[2019-02-05] MEDS: CHOLECALCIFEROL 1,000 UNIT TABLET (VIT D3) PO SCH (08:46)
[2019-02-05] MEDS: RIVAROXABAN 10 MG TABLET PO SCH (08:48)
[2019-02-05] MEDS: TOVIAZ 4 MG PO SCH (08:49)
[2019-02-05] MEDS: Z GUARD REMEDY 2 OZ OINT TP SCH (08:49)
[2019-02-05] MEDS: NITROGLYCERIN 30 GM TUBE TP SCH ×2 (08:50→20:57)
[2019-02-05 09:00] VITALS: BP 145/84
[2019-02-05] MEDS ORDERED: TOLTERODINE 2 MG CAP.SR PO SCH (09:00)
[2019-02-05 16:00] VITALS: BP 123/79
--- NOTE | 2019-02-05 18:28 | NUR ---
M/S RN CLOSING NOTES PATIENT RESTING IN BED. AWAKE, AROUSABLE THROUGH VERBAL AND TACTILE STIMULI. NO ACUTE DISTRESS. DENIES ANY PAIN OR DISCOMFORT, NO FACIAL GRIMACE NOTED. AT THE BEDSIDE. BED IS IN LOWEST POSITION. SIDE RAILS X2 IN UPRIGHT POSITION. CALL LIGHT IS WITHIN REACH. PATIENT ASSISTED TO A COMFORTABLE POSITION Q2 FOR POSITIONING AND COMFORT. WILL ENDORSE TO INCOMING NURSE ABOUT CE.
[2019-02-05 20:00] VITALS: BP 158/88
--- NOTE | 2019-02-05 20:00 | NUR ---
RN NOTES RECEIVED PATIENT IN BED, ALERT TO SELF ONLY, NON VERBAL AT TIMES, CONFUSED, HX OF ALZHEIMERS, NO BEHAVIOR DISTURBANCE, STABLE ON ROOM AIR, NOT IN APPARENT PAIN, NO RESTLESSNESS, AT THE BEDSIDE READING TO PATIENT.
[2019-02-05] MEDS: CEFTRIAXONE 1 G in IV D5W 50 ML IV SCH (20:35)
--- NOTE | 2019-02-06 06:09 | NUR ---
RN NOTES PM SHIFT PATIENT IS ASLEEP, EASILY AROUSEABLE BY TOUCH, STABLE ON ROOM AIR, CALM, NOT IN APPARENT PAIN, STABLE VS, SKIN REMAINED DRY AND CLEAN, ZGUARD AND MEPILEX TO COCCYX, HEELS OFFLOADED, VOIDING SPONTANEOUSLY, ROCEPHIN FOR UTI, DISCHARGE PLANNING TO GO BACK TO [facility],
[2019-02-06 07:09] LABS: BASOPHILS # (AUTO) 0.1 /CMM (0.0-0.2); BASOPHILS % (AUTO) 0.9 % (0.0-2.0); HEMATOCRIT 35 % (33-45); LYMPHOCYTES # (AUTO) 1.2 /CMM (0.8-4.8); LYMPHOCYTES % (AUTO) 17.9 % (20.0-44.0); MEAN CORPUSCULAR HGB CONC 34 g/dl (31.0-36.0); MEAN CORPUSCULAR VOLUME 92 fL (82-100); MONOCYTES # (AUTO) 0.8 /CMM (0.1-1.30); MONOCYTES % (AUTO) 11.4 % (2.0-12.0); NEUTROPHILS # (AUTO) 4.5 /CMM (1.8-8.9); NEUTROPHILS % (AUTO) 65.8 % (43.0-81.0); PLATELET COUNT (AUTO) 190 /CMM (150-450); RED BLOOD CELL COUNT(AUTO) 3.82 MIL/uL (4.0-5.2); WHITE BLOOD COUNT (AUTO) 6.9 K/uL (4.3-11.0)
[2019-02-06 07:21] LABS: CALCIUM, SERUM 8.4 mg/dL (8.5-10.1); CREATININE 0.8 mg/dL (0.6-1.3); POTASSIUM 3.5 mmol/L (3.5-5.1)
--- NOTE | 2019-02-06 07:41 | NUR ---
MS RN NOTES PATIENT RESTING INSIDE ROOM. AWAKE, ALERT AND ORIENTED X 1. NO ACUTE DISTRESS. NO C/O PAIN OR DISCOMFORT. NO FACIAL GRIMACE NOTED. PATIENT CALM AND RELAXED. SAFETY PRECAUTIONS IN PLACE. WILL CONTINUE TO MONITOR. BED LOCKED AND IN LOW POSITION. BILATERAL UPPER SIDE RAILS UP AND LOCKED. BED ALARM ON. CALL LIGHT WITHIN EASY REACH
[2019-02-06 08:00] VITALS: BP 139/83
[2019-02-06] MEDS: MULTIVIT W/MINERALS 1 TAB TABLET PO SCH (09:00)
[2019-02-06] MEDS: ESCITALOPRAM OXALATE (10 MG) 10 MG TABLET PO SCH (09:00)
[2019-02-06] MEDS: DOCUSATE SODIUM LIQ 100 MG/10 ML UDC PO SCH (09:00)
[2019-02-06] MEDS: CHOLECALCIFEROL 1,000 UNIT TABLET (VIT D3) PO SCH (09:00)
[2019-02-06] MEDS: LEVOTHYROXINE SODIUM 100 MCG TABLET PO SCH (09:00)
[2019-02-06] MEDS: DONEPEZIL 5 MG TABLET PO SCH (09:00)
[2019-02-06] MEDS: RIVAROXABAN 10 MG TABLET PO SCH (09:00)
[2019-02-06 09:01] VITALS: BP 139/83
[2019-02-06] MEDS: NITROGLYCERIN 30 GM TUBE TP SCH (09:01)
[2019-02-06] MEDS: TOVIAZ 4 MG PO SCH (09:01)
[2019-02-06] MEDS: Z GUARD REMEDY 2 OZ OINT TP SCH (09:02)
[2019-02-06] MEDS ORDERED: CEPH-570 PO (11:23)
--- NOTE | 2019-02-06 13:14 | NUR ---
MS RN NOTES SPOKE WITH CORNEL, AND VERIFIED VACCINATION STATUS. PER CORNEL, PATIENT RECEIVED FLU VACCINE JAN 2019 AT [facility], AND PNA VACCINE GIVEN LAST YEAR. WILL CONTINUE TO MONITOR
--- NOTE | 2019-02-06 13:30 | NUR ---
MS RN NOTES PATIENT WITH ORDERS FROM [facility] TO BE DISCHARGED. ORDER NOTED AND CARRIED OUT. RECEIVED REPORT FROM WOOD TURNING LATHE OPERATOR THAT PATIENT WILL BE TRANSFERRED TO [facility]. WITH ANTICIPATED AMBULANCE DUE DILIGENCE COORDINATOR TIME AT 1400. EMERSON UNGER AT BEDSIDE MADE AWARE AND VERBALIZED UNDERSTANDING. WILL CONTINUE TO MONITOR
--- NOTE | 2019-02-06 14:35 | NUR ---
MS RN NOTES PATIENT TO DISCHARGE TO [facility]. DISCHARGE INSTRUCTIONS AND EDUCATION PROVIDED TO FAMILY AND VERBALIZED UNDERSTANDING. IV REMOVED, TIP INTACT, PRESSURE DRESSING PLACED ON SITE. NO ACTIVE BLEEDING NOTED. ALL BELONGINGS COMPLETE ON DISCHARGE, NO REPORT OF MISSING INVENTORY. PATIENT LEFT UNIT VIA GURNEY IN STABLE CONDITION. NO ACUTE DISTRESS. DENIES ANY PAIN OR DISCOMFORT. NO FACIAL GRIMACE NOTED. NO NEW SKIN BREAKDOWN NOTED ON DISCHARGE. MD AWARE OF DISCHARGE
== END 2019-02-06 14:45 | DRG 689 ==
LOC: ER 19:36 → TELE 21:16 → MED 02-05 10:28
PROVIDERS: ADMIT Internal Medicine; ATTEND Nurse Practitioner Acute Care
DX: N39.0 Urinary tract infection, site not specified (principal); G93.41 Metabolic encephalopathy; D68.59 Other primary thrombophilia; E44.0 Moderate protein-calorie malnutrition; E87.2 Acidosis; B96.20 Unspecified Escherichia coli [E. coli] as the cause of diseases classified elsewhere; E87.6 Hypokalemia; Z87.820 Personal history of traumatic brain injury; F03.90 Unspecified dementia, unspecified severity, without behavioral disturbance, psychotic disturbance, mood disturbance, and anxiety; Z68.30 Body mass index [BMI] 30.0-30.9, adult; E88.09 Other disorders of plasma-protein metabolism, not elsewhere classified; E66.9 Obesity, unspecified; E03.9 Hypothyroidism, unspecified; M19.90 Unspecified osteoarthritis, unspecified site; R00.1 Bradycardia, unspecified; D64.9 Anemia, unspecified; I10 Essential (primary) hypertension; G89.29 Other chronic pain; F17.210 Nicotine dependence, cigarettes, uncomplicated; Z79.01 Long term (current) use of anticoagulants; Z96.653 Presence of artificial knee joint, bilateral
CPT/HCPCS: 36415; 71045-TC; 80048-TC; 80053-TC; 80061-TC; 80076-TC; 81000-TC; 82728-TC; 83540-TC; 83605-TC; 83735-TC; 83880; 84100-TC; 84439-TC; 84443-TC; 84484-TC; 85025-TC; 85730-TC; 87040-TC; 87081-TC; 87086-TC; 87186-TC; 93307-TC; 97112-TC; 97530-TC; 97535-TC; G0378; J0696; J7030; J7050; J7060

== ENCOUNTER 2019-03-09 16:55 | Inpatient (IN) | payer MEDICARE, BC ==
[~2019-03-09] VITALS: Ht 154.9 cm; Wt 72.6 kg
[~2019-03-09 16:55] MED LIST changes: +CEPH-570 PO; -GUAI100S27 PO; -QUET25TA PO; +RIVA10TA PO; -Rivaroxaban PO; +[UNRECOGNIZED DRUG - CODE] PO
--- NOTE | 2019-03-09 17:03 | NUR ---
"NAREN RA [phone] From [facility] " called she has Fever/cough" PT NONVERBAL, PT ON MONITOR -SOB, NAD NOTED, ROBB ELY
[2019-03-09] MEDS ORDERED: ACETAMINOPHEN 325 MG TABLET PO ONE (17:30)
[2019-03-09 17:48] LABS: BASOPHILS # (AUTO) 0.1 /CMM (0.0-0.2); BASOPHILS % (AUTO) 0.9 % (0.0-2.0); EOSINOPHILS % (AUTO) 2.1 % (0.0-6.0); HEMATOCRIT 36 % (33-45); HEMOGLOBIN 12.4 g/dL (11.5-14.8); LYMPHOCYTES # (AUTO) 0.6 /CMM (0.8-4.8); LYMPHOCYTES % (AUTO) 7.9 % (20.0-44.0); MEAN CORPUSCULAR HGB CONC 34 g/dl (31.0-36.0); MEAN CORPUSCULAR VOLUME 92 fL (82-100); MONOCYTES # (AUTO) 0.8 /CMM (0.1-1.30); MONOCYTES % (AUTO) 11.2 % (2.0-12.0); NEUTROPHILS # (AUTO) 5.6 /CMM (1.8-8.9); NEUTROPHILS % (AUTO) 77.9 % (43.0-81.0); PLATELET COUNT (AUTO) 185 /CMM (150-450); RED BLOOD CELL COUNT(AUTO) 3.95 MIL/uL (4.0-5.2); WHITE BLOOD COUNT (AUTO) 7.2 K/uL (4.3-11.0)
[2019-03-09 18:00] LABS: CALCIUM, SERUM 9.1 mg/dL (8.5-10.1); CARBON DIOXIDE 27 mmol/L (21-32); CHLORIDE 106 mmol/L (98-107); CREATININE 0.9 mg/dL (0.6-1.3); GLUCOSE 94 mg/dL (74-106); POTASSIUM 3.8 mmol/L (3.5-5.1); SODIUM SERUM 142 mmol/L (136-145); UREA NITROGEN, BLOOD 16 mg/dL (7-18)
[2019-03-09 18:06] LABS: ALANINE AMINOTRANSFERASE 20 U/L (12-78); ALBUMIN 2.9 g/dL (3.4-5.0); ALKALINE PHOSPHATASE 83 U/L (46-116); ASPARTATE AMINOTRANSFERASE 22 U/L (15-37); BILIRUBIN,DIRECT 0.1 mg/dL (0.0-0.2); BILIRUBIN,TOTAL 0.3 mg/dL (0.2-1.0); TOTAL PROTEIN, SERUM 6.9 g/dL (6.4-8.2)
[2019-03-09 18:17] LABS: APPEARANCE,URINE Slightly Cloudy (CLEAR); BILIRUBIN,URINE Negative (NEGATIVE); BLOOD, URINE Large Ery/uL (NEGATIVE); COLOR,URINE Dark (YELLOW); KETONES,URINE Negative (NEGATIVE); LEUKOCYTE ESTERASE ,URINE Small (NEGATIVE); NITRITE, URINE Positive (NEGATIVE); PH,URINE 5.5 (5.0-8.0); PROTEIN,URINE Trace mg/dl (NEGATIVE); UGLUCOSE Negative (NEGATIVE); UROBILINOGEN,URINE 0.2 EU/dL (0.2)
[2019-03-09] MEDS ORDERED: ACETAMINOPHEN 650 MG/20.3 ML UDC ONE (18:18)
[2019-03-09] MEDS ORDERED: PIPERACILLIN /TAZOBACTAM 3.375 G in IV D5W 50 ML IV ONE (19:00)
[2019-03-09] MEDS ORDERED: PROP15DR OP (19:08)
[2019-03-09] MEDS ORDERED: LOPE2CAP40 PO (19:08)
[2019-03-09] MEDS ORDERED: CRAN425C6 PO (19:08)
[2019-03-09] MEDS ORDERED: BISA10SU11 RC (19:08)
--- NOTE | 2019-03-09 19:16 | NUR ---
[facility]
[2019-03-09 19:18] LABS: BACTERIA,URINE Many /HPF (None Seen)
[2019-03-09 19:19] LABS: SQUAMOUS EPITHELIAL CELL,UR Moderate /HPF (None Seen)
[2019-03-09 19:20] LABS: WBC,URINE 21-50 /HPF (0-3)
--- NOTE | 2019-03-09 19:33 | NUR ---
efren gonzalez called for tele bed waiting for assignment Addendum: 03/09/19 at 1934 by CHASITY efren gonzalez called for MEDSURG bed waiting for assignment
--- NOTE | 2019-03-09 19:52 | NUR ---
ms [id number]
[2019-03-09] MEDS ORDERED: PIPERACILLIN /TAZOBACTAM 3.375 G VIAL IV ONE (19:55)
--- NOTE | 2019-03-09 20:15 | NUR ---
REPORT GIVEN TO DELANEY MCWILLIAMS FOR CE PT WILL BE TRANSPORTED TO 3RD FLOOR
[2019-03-09] MEDS ORDERED: ONDANSETRON HCL/PF 4 MG/2 ML VIAL IV STA (20:21)
[2019-03-09] MEDS ORDERED: MORPHINE SULFATE INJ 2 MG/ML DISP.SYRIN IV STA (20:21)
--- NOTE | 2019-03-09 20:22 | NUR ---
RN NOTES PATIENT'S REFUSED MEDS MORPHINE SULFATE 2 MG IV, ZOFRAN 4MG IV, PATIENT IS NOT IN PAIN AND NO NAUSEA AND VOMITING NOTED AT THIS TIME. PATIENT IS RESTING COMFORTABLY, DOZING OFF, VITAL SIGNS TAKEN AND RECORDED, BP 136/70 HR 65 RR 18 TEMP 98.9/AXILLA SATING 100% ON 02 AT 2LPM VIA NASAL CANNULA. PATIENT CAN RESPOND VERBALLY,CAN SAY YES OR NO, RESPONDS WHEN CALL BY HER NAME YEHUDA.
[2019-03-09] MEDS ORDERED: MAG HYDROX/AL HYDROX/SIMETH 30 ML UDC PO PRN (20:30)
[2019-03-09] MEDS ORDERED: ONDANSETRON HCL/PF 4 MG/2 ML VIAL IVP PRN (20:30)
[2019-03-09] MEDS ORDERED: MAGNESIUM HYDROXIDE 30 ML UDC PO PRN ×2 (20:30)
[2019-03-09] MEDS ORDERED: ACETAMINOPHEN 325 MG TABLET PO PRN ×2 (20:30)
[2019-03-09] MEDS ORDERED: ZOLPIDEM TARTRATE 5 MG TABLET PO PRN (20:30)
[2019-03-09] MEDS ORDERED: NA PHOS,M-B/NA PHOS,DI-BA 1 EA ENEMA RC PRN (20:30)
[2019-03-09] MEDS ORDERED: HYDROCODONE/APAP 5/325MG 1 EACH TABLET PO PRN (20:30)
[2019-03-09] MEDS: CARBOXYMETHYLCELLULOSE SODIUM 0.4 ML DROPERETTE EACHEYE SCH ×2 (20:30→21:00)
[2019-03-09] MEDS ORDERED: GUAIFENESIN 300 MG/15 ML UDC PO PRN (20:30)
[2019-03-09] MEDS ORDERED: Z GUARD REMEDY 2 OZ OINT TP PRN (20:30)
[2019-03-09] MEDS ORDERED: BISACODYL SUPP (10 MG) 10 MG/SUPP.RECT SUPP.RECT RC PRN (20:30)
[2019-03-09] MEDS ORDERED: LOPERAMIDE HCL (2 MG CAP) 2 MG CAPSULE PO PRN (20:30)
[2019-03-09 20:40] VITALS: BP 136/70
--- NOTE | 2019-03-09 20:47 | NUR ---
RN NOTES ADMITTED PATIENT ALERT ORIENTED X1, TRANSPORTED FROM ER VIA GURNEY, NO SIGNS OF ACUTE CARDIAC OR RESPIRATORY DISTRESS NOTED, ADMISSION PROCESS INITIATED, SKIN IS INTACT, IV ACCESS ON HIS LEFT FOREARM G#20, INTACT AND PATENT, SAFETY MEASURES IN PLACE, BED IN LOW LOCKED POSITION, ASPIRATION PRECAUTION EMPHASIZE, ALL NEEDS ANTICIPATED, WILL CONTINUE TO MONITOR ACCORDINGLY.
[2019-03-09 20:50] VITALS: BP 136/70
--- NOTE | 2019-03-09 21:50 | NUR ---
RN NOTES NOTED WITH RED SKIN DISCOLORATION ON HER RIGHT FOREARM, PHOTO TAKEN, NOTED AND IN THE PATIENT'S CHART.
--- NOTE | 2019-03-09 22:40 | NUR ---
RN NOTES SEEN AND ASSESSED BY DR. MACDONALD.
[2019-03-09] MEDS: CEFTRIAXONE 1 G in IV D5W 50 ML IV SCH (22:49)
[2019-03-10] MEDS: CARBOXYMETHYLCELLULOSE SODIUM 0.4 ML DROPERETTE EACHEYE SCH ×3 (05:10→12:06)
[2019-03-10 07:07] LABS: BASOPHILS # (AUTO) 0.1 /CMM (0.0-0.2); BASOPHILS % (AUTO) 1.3 % (0.0-2.0); EOSINOPHILS % (AUTO) 5.1 % (0.0-6.0); HEMATOCRIT 36 % (33-45); HEMOGLOBIN 12.2 g/dL (11.5-14.8); LYMPHOCYTES # (AUTO) 0.9 /CMM (0.8-4.8); LYMPHOCYTES % (AUTO) 16.6 % (20.0-44.0); MEAN CORPUSCULAR HGB CONC 34 g/dl (31.0-36.0); MEAN CORPUSCULAR VOLUME 91 fL (82-100); MONOCYTES # (AUTO) 0.9 /CMM (0.1-1.30); MONOCYTES % (AUTO) 17.5 % (2.0-12.0); NEUTROPHILS # (AUTO) 3.1 /CMM (1.8-8.9); NEUTROPHILS % (AUTO) 59.5 % (43.0-81.0); PLATELET COUNT (AUTO) 170 /CMM (150-450); RED BLOOD CELL COUNT(AUTO) 3.91 MIL/uL (4.0-5.2); WHITE BLOOD COUNT (AUTO) 5.2 K/uL (4.3-11.0)
[2019-03-10 07:12] LABS: CALCIUM, SERUM 8.3 mg/dL (8.5-10.1); CREATININE 0.8 mg/dL (0.6-1.3); MAGNESIUM 1.9 mg/dL (1.8-2.4); PHOSPHORUS 3.1 mg/dL (2.5-4.9); POTASSIUM 3.3 mmol/L (3.5-5.1)
--- NOTE | 2019-03-10 07:25 | NUR ---
RN NOTES ABLE TO REST AND SLEPT AT INTERVALS. SAFETY MEASURES IN PLACE, ASPIRATION PRECAUTION MAINTAINED. ENDORSED TO AM NURSE FOR CONTINUITY OF CARE.
--- NOTE | 2019-03-10 07:37 | NUR ---
MS RN OPENING NOTES PATIENT RECEIVED AWAKE IN BED IN NO ACUTE SIGN SOF DISTRESS. HOB ELEVATED. A/O X1. RESPONSIVE TO TACTILE STIMULI AND TRIED TO SPOKE TO BUT PT NOT RESPONDING VERBALLY. PT SEEMS COMFORTABLE, NO SIGNS OF PAIN LIKE GRIMACING OR MOANING NOTED AT THIS TIME. ON 02 VIA N/C @ 2LPM, RESPIRATIONS EVEN AND UNLABORED. IV ACCESS ON LFA G #20 INTACT AND PATENT. SAFETY PRECAUTIONS IN PLACE. BED IN LOWEST LOCKED POSITION WITH SIDE RAILS UP X2. CALL LIGHT WITHIN REACH. WILL CONTINUE TO MONITOR PT.
[2019-03-10] MEDS: LEVOTHYROXINE SODIUM 100 MCG TABLET PO SCH (07:43)
[2019-03-10 08:00] VITALS: BP 168/80
[2019-03-10] MEDS: POTASSIUM CL. PREMIX PERIPHER. 50 ML IV SCH ×4 (08:47→12:18)
[2019-03-10] MEDS: ESCITALOPRAM OXALATE (10 MG) 10 MG TABLET PO SCH (08:47)
[2019-03-10] MEDS: MULTIVIT W/MINERALS 1 TAB TABLET PO SCH (08:48)
[2019-03-10] MEDS: DONEPEZIL 5 MG TABLET PO SCH ×2 (08:48→16:45)
[2019-03-10] MEDS: DOCUSATE SODIUM 250 MG CAPSULE PO SCH (08:48)
[2019-03-10] MEDS: VIT B CMPLX 3/FA/VIT C/BIOTIN 1 TAB TABLET PO SCH (08:48)
[2019-03-10] MEDS: CHOLECALCIFEROL 1,000 UNIT TABLET (VIT D3) PO SCH (08:48)
[2019-03-10] MEDS ORDERED: Medication Not On Formulary EA (Cranberry Extract (Cranberry) 425 MG) PO SCH (09:00)
--- NOTE | 2019-03-10 09:42 | NUR ---
RN NOTES: CALLED PHARMACY REGARDING REFRESH PLUS EYEDROPS BUT THEY DO NOT HAVE SUPPLY TODAY. INFORMED DR. DUNN IF POSSIBLE TO CHANGE THE MEDICATION. SAID IT IS OK TO CHANGE THE MEDICATION TO ARTIFICIAL TEARS. WILL CARRY OUT ORDER.
[2019-03-10] MEDS: POLYVINYL ALCOHOL 15 ML BOTTLE EACHEYE SCH ×3 (12:12→21:51)
--- NOTE | 2019-03-10 15:57 | NUR ---
RN NOTES PT NOTED WITH LOW LEVEL POTASSIUM 3.3, ADMINISTERED KCL 10 MEQ/50ML IV X 4 DOSES ORDERED. WILL CONTINUE TO MONITOR
[2019-03-10 16:00] VITALS: BP 154/71
[2019-03-10] MEDS: OXYBUTYNIN CHLORIDE 5 MG TABLET PO SCH (16:45)
--- NOTE | 2019-03-10 18:39 | NUR ---
MS RN CLOSING NOTES PATIENT IN BED AWAKE AND LYING AT MODERATE HIGH BACKREST POSITION. AT BEDSIDE. A/O X1. RESPONDS TO VERBAL STIMULI BY SAYING YES AND NO. KEPT ON SUPPLEMENTAL 02 VIA N/C @ 2LPM, TOLERATING WELL WITH NO SOB NOTED THROUGHOUT THE DAY. IV ACCESS ON LFA G #20 INTACT, PATENT AND FLUSHES WELL. PT TURNED AND REPOSITIONED Q 2HRS AND PRN. KEPT DRY, CLEAN AND COMFORTABLE. ALL NEEDS AND CARE PROVIDED WELL. SAFETY PRECAUTIONS KEPT IN PLACE: HOB KEPT ELEVATED. BED IN LOWEST LOCKED POSITION WITH SIDE RAILS UP X2. CALL LIGHT WITHIN REACH. WILL ENDORSE TO SUPERVISOR SHIPPING NURSE FOR CE.
--- NOTE | 2019-03-10 20:41 | NUR ---
M/S RN OPENING NOTES PATIENT CURRENTLY RESTING IN BED WITH AT BEDSIDE, HOB ELEVATED. A/O x1 ABLE TO RESPOND TO NAME. NO ACUTE DISTRESS NOTED AND NO SIGNS OF PAIN. PATIENT ON 2L OF O2 VIA NC. IV LOCATED ON LEFT FA G#20 PATENT AND INTACT. SAFETY PRECAUTIONS ARE IN PLACE WITH BED IN LOWEST POSITION, SIDE RAILS UP x2, BREAKS ON, AND CALL LIGHT WITHIN REACH. WILL CONTINUE TO MONITOR.
[2019-03-10 20:43] VITALS: BP 129/66
[2019-03-10] MEDS: CEFTRIAXONE 1 G in IV D5W 50 ML IV SCH (21:51)
--- NOTE | 2019-03-10 21:51 | NUR ---
M/S RN NOTES PATIENT TEMPERATURE WAS 100F. REMOVED BLANKETS, MADE ROOM COOLER, GAVE 650 MG OF TYLENOL. WILL CONTINUE TO MONITOR.
--- NOTE | 2019-03-10 23:52 | NUR ---
M/S RN NOTES PATIENT TEMPERATURE REDUCED TO 99.3 F. WILL CONTINUE TO MONITOR.
--- NOTE | 2019-03-11 03:19 | NUR ---
M/S RN NOTES LAB CALLED AT 0315 ABOUT RESULTS OF GRAM POSITIVE COCCI IN CLUSTERS SEEN ON GRAM STAIN. DR. DE LA CRUZ NOTIFIED.
[2019-03-11] MEDS ORDERED: VANCOMYCIN 1 GM in IV D5W 250 ML IV ONE (03:30)
[2019-03-11] MEDS ORDERED: VANCOMYCIN 1 GM VIAL ONE (03:49)
[2019-03-11 06:31] LABS: EOSINOPHILS % (AUTO) 6.8 % (0.0-6.0); HEMATOCRIT 36 % (33-45); HEMOGLOBIN 12.4 g/dL (11.5-14.8); LYMPHOCYTES % (AUTO) 28.8 % (20.0-44.0); MEAN CORPUSCULAR HGB CONC 34 g/dl (31.0-36.0); MEAN CORPUSCULAR VOLUME 91 fL (82-100); MONOCYTES # (AUTO) 0.6 /CMM (0.1-1.30); NEUTROPHILS # (AUTO) 1.6 /CMM (1.8-8.9); NEUTROPHILS % (AUTO) 47.4 % (43.0-81.0); PLATELET COUNT (AUTO) 165 /CMM (150-450); RED BLOOD CELL COUNT(AUTO) 3.98 MIL/uL (4.0-5.2); WHITE BLOOD COUNT (AUTO) 3.4 K/uL (4.3-11.0)
[2019-03-11 06:39] LABS: CALCIUM, SERUM 8.3 mg/dL (8.5-10.1); CREATININE 0.7 mg/dL (0.6-1.3); PHOSPHORUS 3.3 mg/dL (2.5-4.9); POTASSIUM 3.6 mmol/L (3.5-5.1)
--- NOTE | 2019-03-11 06:50 | NUR ---
M/S RN NOTES PATIENTS L HAND IV INFILTRATED SHOWED REDNESS. REMOVED IV AND PLACED COLD PRESS. NEW IV STARTED ON RFA #20.
--- NOTE | 2019-03-11 06:51 | NUR ---
M/S CLOSING NOTES PATIENT CURRENTLY RESTING IN BED A/Ox1. NO SIGNS OF ACUTE DISTRESS OR SOB. PATIENT KEPT CLEAN DRY AND COMFORTABLE. ALL MEDICATIONS GIVEN IV LOCATED ON R FA #20 PATENT AND INTACT. SAFETY PRECAUTIONS IN PLACE WITH BED IN LOWEST POSITION, LOCKED, AND CALL LIGHT WITHIN REACH. ALL NEEDS MET. WILL ENDORSE TO ONCOMING SHIFT ABOUT CE.
[2019-03-11] MEDS ORDERED: FEE PK DOSING 1 MIN EA MC ONE (07:10)
--- NOTE | 2019-03-11 07:25 | NUR ---
MS RN OPENING NOTES RECEIVED PT IN BED, AWAKE. A/O X1. PT TOLERATING RA AT THIS TIME, WITH NO ACUTE RESPIRATORY DISTRESS NOTED. PER NIGHT NURSE PT ON SUPPLEMENTARY OXYGEN BUT KEEPS TAKING THE NC OFF. PT DENIES ANY PAIN OR DISCOMFORT AT THIS TIME. PT DENIES ANY QUESTIONS OR CONCERN AT THIS TIME. PIV TO RFA G20, FLUSHED WITH NS, INTACT AND OPERATIONAL. LFA SWOLLEN WITH REDNESS NOTED, S/P INFILTRATION FROM IV. PT KEPT COMFORTABLE. CALL LIGHT KEPT WITHIN REACH. PT'S BED IN LOWEST, LOCKED POSITION WITH SRX3. WILL CONTINUE PLAN OF CARE.
[2019-03-11 08:00] VITALS: BP 154/84
[2019-03-11] MEDS: DOCUSATE SODIUM 250 MG CAPSULE PO SCH (08:51)
[2019-03-11] MEDS: ESCITALOPRAM OXALATE (10 MG) 10 MG TABLET PO SCH (08:51)
[2019-03-11] MEDS: LEVOTHYROXINE SODIUM 100 MCG TABLET PO SCH (08:51)
[2019-03-11] MEDS: MULTIVIT W/MINERALS 1 TAB TABLET PO SCH (08:51)
[2019-03-11] MEDS: OXYBUTYNIN CHLORIDE 5 MG TABLET PO SCH ×2 (08:51→17:04)
[2019-03-11] MEDS: CHOLECALCIFEROL 1,000 UNIT TABLET (VIT D3) PO SCH (08:51)
[2019-03-11] MEDS: VIT B CMPLX 3/FA/VIT C/BIOTIN 1 TAB TABLET PO SCH (08:51)
[2019-03-11] MEDS: DONEPEZIL 5 MG TABLET PO SCH ×2 (08:51→17:04)
[2019-03-11] MEDS: POLYVINYL ALCOHOL 15 ML BOTTLE EACHEYE SCH ×4 (09:02→22:09)
[2019-03-11 16:00] VITALS: BP 143/74
--- NOTE | 2019-03-11 18:49 | NUR ---
MS RN CLOSING NOTES PT IN BED, AWAKE. A/O X1. PT TOLERATING RA AT THIS TIME, WITH NO ACUTE RESPIRATORY DISTRESS NOTED. PIV TO RFA G20, FLUSHED WITH NS, INTACT AND OPERATIONAL. LFA SWOLLEN WITH REDNESS NOTED, S/P INFILTRATION FROM IV. ALL NEEDS AND CARE ATTENDED. PT KEPT COMFORTABLE. CALL LIGHT KEPT WITHIN REACH. PT'S BED IN LOWEST, LOCKED POSITION WITH SRX3. WILL ENDORSE TO INCOMING NIGHT NURSE FOR CE.
[2019-03-11 20:00] VITALS: BP 147/69
[2019-03-11] MEDS: CEFTRIAXONE 1 G in IV D5W 50 ML IV SCH (22:09)
[2019-03-11] MEDS: VANCOMYCIN 1 GM in IV D5W 250 ML IV SCH (22:46)
--- NOTE | 2019-03-12 06:24 | NUR ---
MS/RN PATIENT APPEARS SLEEPING AT THIS TIME, APPEARS COMFORTABLE, NO SIGNS OF DISTRESS NOTED, HAD AN ON AND OFF SLEEP THE WHOLE SHIFT, ALL NEEDS ATTENDED AT THIS TIME, WILL CONTINUE TO MONITOR.
[2019-03-12 06:31] LABS: CALCIUM, SERUM 8.3 mg/dL (8.5-10.1); CREATININE 0.7 mg/dL (0.6-1.3); POTASSIUM 3.6 mmol/L (3.5-5.1)
--- NOTE | 2019-03-12 07:20 | NUR ---
MS RN OPENING NOTES RECEIVED PT IN BED, AWAKE. A/O X1. PT TOLERATING RA AT THIS TIME, WITH NO ACUTE RESPIRATORY DISTRESS NOTED. PT DENIES ANY PAIN OR DISCOMFORT AT THIS TIME. PT DENIES ANY QUESTIONS OR CONCERN AT THIS TIME. PIV TO RFA G20, FLUSHED WITH NS, INTACT AND OPERATIONAL. PT KEPT COMFORTABLE. CALL LIGHT KEPT WITHIN REACH. PT'S BED IN LOWEST, LOCKED POSITION WITH SRX3. WILL CONTINUE PLAN OF CARE.
[2019-03-12 08:00] VITALS: BP 134/68
[2019-03-12] MEDS ORDERED: CEFT1VIA15 IV (08:43)
[2019-03-12] MEDS: CHOLECALCIFEROL 1,000 UNIT TABLET (VIT D3) PO SCH (08:58)
[2019-03-12] MEDS: OXYBUTYNIN CHLORIDE 5 MG TABLET PO SCH ×2 (08:58→16:48)
[2019-03-12] MEDS: DONEPEZIL 5 MG TABLET PO SCH ×2 (08:58→16:48)
[2019-03-12] MEDS: LEVOTHYROXINE SODIUM 100 MCG TABLET PO SCH (08:58)
[2019-03-12] MEDS: MULTIVIT W/MINERALS 1 TAB TABLET PO SCH (08:58)
[2019-03-12] MEDS: ESCITALOPRAM OXALATE (10 MG) 10 MG TABLET PO SCH (08:58)
[2019-03-12] MEDS: VIT B CMPLX 3/FA/VIT C/BIOTIN 1 TAB TABLET PO SCH (08:58)
[2019-03-12] MEDS: DOCUSATE SODIUM 250 MG CAPSULE PO SCH (08:58)
[2019-03-12] MEDS: POLYVINYL ALCOHOL 15 ML BOTTLE EACHEYE SCH ×4 (09:09→20:47)
[2019-03-12] MEDS: VANCOMYCIN 1 GM in IV D5W 250 ML IV SCH (15:56)
[2019-03-12 16:00] VITALS: BP 135/75
[2019-03-12] MEDS: LACTOBACILLUS RHAMNOSUS GG 1 EACH CAP.SPRINK PO SCH (16:49)
--- NOTE | 2019-03-12 18:37 | NUR ---
MS RN CLOSING NOTES PT IN BED, AWAKE. A/O X1. PT TOLERATING RA AT THIS TIME, WITH NO ACUTE RESPIRATORY DISTRESS NOTED. PT DENIES ANY PAIN OR DISCOMFORT AT THIS TIME. PIV TO RFA G20, FLUSHED WITH NS, INTACT AND OPERATIONAL. ALL NEEDS AND CARE ATTENDED. PT KEPT COMFORTABLE. CALL LIGHT KEPT WITHIN REACH. PT'S BED IN LOWEST, LOCKED POSITION WITH SRX3. WILL ENDORSE TO INCOMING NIGHT NURSE FOR CE.
--- NOTE | 2019-03-12 19:45 | NUR ---
MS RN NOTES RECEIVED ON BED A/O X 1,WITH LIMITED VERBAL RESPONSE.SALINE LOCK RIGHT FORE ARM INTACT AND PATENT.WILL CONTINUE TO MONITOR STATUS.
[2019-03-12 20:00] VITALS: BP 137/52
[2019-03-12 20:11] VITALS: BP 137/52
[2019-03-12] MEDS: CEFTRIAXONE 1 G in IV D5W 50 ML IV SCH (20:45)
[2019-03-13 06:31] LABS: CALCIUM, SERUM 8.5 mg/dL (8.5-10.1); CREATININE 0.8 mg/dL (0.6-1.3); POTASSIUM 3.8 mmol/L (3.5-5.1)
--- NOTE | 2019-03-13 06:38 | NUR ---
MS RN NOTES ON BED,STILL WITH LIMITED VERBAL RESPONSE,NO FALL,NO INJURY.POSSIBLE DISCHARGE TO SNF AWAITING PLACEMENT .IN NO ACUTE DISTRESS.
--- NOTE | 2019-03-13 07:30 | NUR ---
MS RN OPENING NOTES RECEIVED PT IN BED RESTING COMFORTABLY IN MODERATE HIGH BACK REST. A/O X1. NO SIGNS OF DISTRESS NOTED AT THIS TIME. IV ACCESS ON RFA G20. INTACT AND PATENT. SAFETY MEASURES IN PLACE. CALL LIGHT KEPT WITHIN REACH. PT'S BED IN LOWEST, LOCKED POSITION WITH SRX3. WILL CONTINUE TO MONITOR.
[2019-03-13 08:00] VITALS: BP 102/61
[2019-03-13] MEDS: POLYVINYL ALCOHOL 15 ML BOTTLE EACHEYE SCH (08:28)
[2019-03-13] MEDS: MULTIVIT W/MINERALS 1 TAB TABLET PO SCH (08:28)
[2019-03-13] MEDS: CHOLECALCIFEROL 1,000 UNIT TABLET (VIT D3) PO SCH (08:28)
[2019-03-13] MEDS: ESCITALOPRAM OXALATE (10 MG) 10 MG TABLET PO SCH (08:28)
[2019-03-13] MEDS: LEVOTHYROXINE SODIUM 100 MCG TABLET PO SCH (08:29)
[2019-03-13] MEDS: VIT B CMPLX 3/FA/VIT C/BIOTIN 1 TAB TABLET PO SCH (08:29)
[2019-03-13] MEDS: DOCUSATE SODIUM 250 MG CAPSULE PO SCH (08:29)
[2019-03-13] MEDS: OXYBUTYNIN CHLORIDE 5 MG TABLET PO SCH (08:29)
[2019-03-13] MEDS: DONEPEZIL 5 MG TABLET PO SCH (08:29)
[2019-03-13] MEDS: LACTOBACILLUS RHAMNOSUS GG 1 EACH CAP.SPRINK PO SCH (08:29)
[2019-03-13] MEDS ORDERED: CEPH-570 PO (09:31)
[2019-03-13] MEDS: VANCOMYCIN 1 GM in IV D5W 250 ML IV SCH (09:32)
--- NOTE | 2019-03-13 11:00 | NUR ---
LEVER OPERATOR NOTES PATIENT DISCHARGED IN STABLE CONDITION. A/O X1. V/S TAKEN, STABLE AND RECORDED. PATIENT'S IV ACCESS REMOVED AND APPLIED PRESSURE DRESSING. TOOK PICTURES OF SKIN ISSUE, FILED ON CHART. NAME ARM BAND REMOVED. ALL BELONGINGS CHECKED AND SIGNED. HEALTH TEACHING/DISCHARGE INSTRUCTIONS GIVEN AND VERBALIZED UNDERSTANDING. PATIENT LEFT UNIT VIA GURNEY WITH AMBULANCE STAFF AND , NO SIGNS OF DISTRESS NOTED. CHARGE NURSE AWARE OF DISCHARGED.
== END 2019-03-13 11:05 | DRG 871 ==
LOC: ER 16:57 → MED 19:55
PROVIDERS: ADMIT Family Medicine; ATTEND Internal Medicine
DX: A41.9 Sepsis, unspecified organism (principal); G92 Toxic encephalopathy; E43 Unspecified severe protein-calorie malnutrition; N39.0 Urinary tract infection, site not specified; F02.80 Dementia in other diseases classified elsewhere, unspecified severity, without behavioral disturbance, psychotic disturbance, mood disturbance, and anxiety; G30.9 Alzheimer's disease, unspecified; F32.9 Major depressive disorder, single episode, unspecified; Z66 Do not resuscitate; I10 Essential (primary) hypertension; B96.20 Unspecified Escherichia coli [E. coli] as the cause of diseases classified elsewhere; Z68.30 Body mass index [BMI] 30.0-30.9, adult; Z86.73 Personal history of transient ischemic attack (TIA), and cerebral infarction without residual deficits; Z96.653 Presence of artificial knee joint, bilateral; Z79.01 Long term (current) use of anticoagulants; E03.9 Hypothyroidism, unspecified; J06.9 Acute upper respiratory infection, unspecified
CPT/HCPCS: 36415; 71045-TC; 80048-TC; 80061-TC; 80076-TC; 80202-TC; 81000-TC; 83605-TC; 83735-TC; 84100-TC; 84484-TC; 85025-TC; 85730-TC; 87040-TC; 87081-TC; 87086-TC; 87186-TC; G0378; J0696; J2543; J3370; J3480; J7030; J7050; J7060

== ENCOUNTER 2019-10-08 10:27 | Inpatient (IN) | payer MEDICARE, BC ==
[~2019-10-08] VITALS: Ht 157.5 cm; Wt 61.7 kg
[~2019-10-08 10:27] MED LIST changes: +BISA10SU11 RC; +CRAN425C6 PO; +LOPE2CAP40 PO; -PHEN26CR RC; +PHEN26CR2 RC; +PROP15DR OP; -RIVA10TA PO
--- NOTE | 2019-10-08 10:34 | NUR ---
RIA FROM [facility] FOR WITNESSED "SYNCOPAL EPISODE." SITTING IN WHEELCHAIR., TO ER BED 9, HOOKED TO MONITOR, CHANGED TO HOSP GOWN, WARM BLANKET PROVIDED, PATIENT AAO x 0, BREATHING EVEN AND UNLABORED. AWAITING MD ELY.
--- NOTE | 2019-10-08 10:36 | NUR ---
DR FUENTES AT BEDSIDE FOR EVAL.
--- NOTE | 2019-10-08 10:53 | NUR ---
IV LINE STARTED BLOOD DRAWN AND SENT TO LAB.
--- NOTE | 2019-10-08 10:55 | NUR ---
CORNEL RAHMAN ([facility]) [phone]
[2019-10-08] MEDS ORDERED: IV NS 0.9% 500 ML BAG IV ONE (11:00)
--- NOTE | 2019-10-08 11:03 | NUR ---
RADIOLOGY AT BEDSIDE FOR CHEST XRAY.
[2019-10-08 11:05] LABS: BASOPHILS # (AUTO) 0.1 /CMM (0.0-0.2); BASOPHILS % (AUTO) 0.9 % (0.0-2.0); EOSINOPHILS % (AUTO) 1.7 % (0.0-6.0); HEMATOCRIT 45 % (33-45); HEMOGLOBIN 15.2 g/dL (11.5-14.8); LYMPHOCYTES # (AUTO) 1.4 /CMM (0.8-4.8); LYMPHOCYTES % (AUTO) 14.9 % (20.0-44.0); MEAN CORPUSCULAR HGB CONC 34 g/dl (31.0-36.0); MEAN CORPUSCULAR VOLUME 94 fL (82-100); MONOCYTES # (AUTO) 0.8 /CMM (0.1-1.30); NEUTROPHILS # (AUTO) 7.1 /CMM (1.8-8.9); NEUTROPHILS % (AUTO) 74.5 % (43.0-81.0); PLATELET COUNT (AUTO) 296 /CMM (150-450); RED BLOOD CELL COUNT(AUTO) 4.75 MIL/uL (4.0-5.2); WHITE BLOOD COUNT (AUTO) 9.6 K/uL (4.3-11.0)
[2019-10-08 11:18] LABS: CALCIUM, SERUM 9.2 mg/dL (8.5-10.1); CARBON DIOXIDE 28 mmol/L (21-32); CHLORIDE 107 mmol/L (98-107); GLUCOSE 117 mg/dL (74-106); POTASSIUM 3.2 mmol/L (3.5-5.1); SODIUM SERUM 144 mmol/L (136-145); UREA NITROGEN, BLOOD 14 mg/dL (7-18)
--- NOTE | 2019-10-08 11:27 | NUR ---
URINE SAMPLE COLLECTED VIA STRAIGHT CATHETER, URINE SAMPLE SENT TO LAB
[2019-10-08 11:32] LABS: ALANINE AMINOTRANSFERASE 21 U/L (12-78); ALBUMIN 3.3 g/dL (3.4-5.0); ALKALINE PHOSPHATASE 75 U/L (46-116); ASPARTATE AMINOTRANSFERASE 25 U/L (15-37); BILIRUBIN,DIRECT 0.1 mg/dL (0.0-0.2); BILIRUBIN,TOTAL 0.6 mg/dL (0.2-1.0); TOTAL PROTEIN, SERUM 7.3 g/dL (6.4-8.2)
[2019-10-08 11:32] LABS: APPEARANCE,URINE Clear (CLEAR); BILIRUBIN,URINE SMALL (NEGATIVE); BLOOD, URINE Large Ery/uL (NEGATIVE); COLOR,URINE Yellow (YELLOW); KETONES,URINE Trace (NEGATIVE); LEUKOCYTE ESTERASE ,URINE Trace (NEGATIVE); NITRITE, URINE Positive (NEGATIVE); PH,URINE 5.5 (5.0-8.0); PROTEIN,URINE 30 mg/dl (NEGATIVE); UGLUCOSE Negative (NEGATIVE)
[2019-10-08 11:33] LABS: BACTERIA,URINE 1+ /HPF (None Seen)
[2019-10-08] MEDS ORDERED: RIVA10TA PO (11:38)
[2019-10-08] MEDS ORDERED: CEFTRIAXONE 1GM BAG (ER ONLY) 50 ML IV ONE (11:58)
[2019-10-08] MEDS ORDERED: CEFTRIAXONE 1GM BAG (ER ONLY) 1 GM/50 ML PIGGYBACK IV ONE (12:00)
--- NOTE | 2019-10-08 12:42 | NUR ---
CALLED [facility], [address]
--- NOTE | 2019-10-08 12:54 | NUR ---
MOVE SHEET SUBMITTED TO ADMITTING AND CALLED FOR MS BED.
[2019-10-08] MEDS ORDERED: LOPERAMIDE HCL (2 MG CAP) 2 MG CAPSULE PO PRN (13:00)
[2019-10-08] MEDS ORDERED: NA PHOS,M-B/NA PHOS,DI-BA 1 EA ENEMA RC PRN (13:00)
[2019-10-08] MEDS ORDERED: ACETAMINOPHEN 325 MG TABLET PO PRN ×2 (13:00)
[2019-10-08] MEDS ORDERED: MAGNESIUM HYDROXIDE 30 ML UDC PO PRN ×2 (13:00)
[2019-10-08] MEDS ORDERED: MAG HYDROX/AL HYDROX/SIMETH 30 ML UDC PO PRN (13:00)
[2019-10-08] MEDS ORDERED: HYDROCODONE/APAP 5/325MG 1 EACH TABLET PO PRN (13:00)
[2019-10-08] MEDS ORDERED: BISACODYL SUPP (10 MG) 10 MG/SUPP.RECT SUPP.RECT RC PRN (13:00)
[2019-10-08] MEDS ORDERED: Z GUARD REMEDY 2 OZ OINT TP PRN (13:00)
[2019-10-08] MEDS ORDERED: GUAIFENESIN 300 MG/15 ML UDC PO PRN (13:00)
[2019-10-08] MEDS ORDERED: ONDANSETRON HCL/PF 4 MG/2 ML VIAL IVP PRN (13:00)
--- NOTE | 2019-10-08 13:25 | NUR ---
GOT BED 311-2
--- NOTE | 2019-10-08 13:44 | NUR ---
REPORT GIVEN TO SNEHA MCWILLIAMS OF TELE
[2019-10-08 14:35] VITALS: BP 140/62
[2019-10-08] MEDS: IV NS 0.9% 1,000 ML IV PRN (14:35)
[2019-10-08] MEDS: POTASSIUM CL. PREMIX PERIPHER. 50 ML IV SCH ×4 (14:35→17:55)
--- NOTE | 2019-10-08 14:35 | NUR ---
RN ADMITTING NOTES ADMITTED A 84 YEARS OLD, F, AROUSABLE BY NAME, BUT PATIENT IS REFUSING TO TALK AT THIS TIME. NO SIGNS OF DISTRESS NOTED AT THIS TIME. ON RA, TOLERATING WELL. PATIENT ORIENTED TO ROOM, UNIT AND STAFF. V/S TAKEN AND RECORDED. PHYSICAL ASSESSMENT DONE, SKIN IS INTACT. IV ACCESS ON RIGHT AND LEFT HAND #20, PATENT AND INTACT. IVF TO BE STARTED. SAFETY MEASURES INITIATED, BED PLACED IN LOWEST LOCKED POSITION WITH SIDE RAILS UP X3. CALL LIGHT WITHIN REACH. WILL CONTINUE TO MONITOR.
[2019-10-08 16:08] VITALS: BP 150/80
[2019-10-08] MEDS: POLYVINYL ALCOHOL/POVIDONE 0.4 ML DROPERETTE EACHEYE SCH ×2 (16:20→20:56)
[2019-10-08] MEDS: DONEPEZIL 5 MG TABLET PO SCH (16:20)
[2019-10-08] MEDS ORDERED: DONEPEZIL 5 MG TABLET PO SCH (17:00)
--- NOTE | 2019-10-08 18:53 | NUR ---
RN NOTES Patient resting in bed in moderate high back rest, Easily arousable but refused to talk, spoke to and per patient can communicate but just refused sometimes. Patient breathing is unlabored and equal. No signs of distress noted throughout the shift. IV fluids on Right and left hand #20, running NS @75 ml/hr, patent and intact. Safety measures in place, bed in the lowest position, side rails x2, bed brakes are on, and call light within reach. Will endorse to night warehouse selector nurse for [place].
--- NOTE | 2019-10-08 19:15 | NUR ---
MS RN NOTES RECEIVED ON BED,SLEEPING,AROUSABLE TO VERBAL STIMULI,NON VERBAL,POTASSIUM IV INFUSING VIA IV PUMP FOR KE LEVEL 0F 3.2.WITH IVF NS AT 75ML/HR RATE.,SITE PATENT LEFT HAND,RIGHT HAND SALINE LOCK INTACT AND PATENT WELL.FALL RISK,BED ALARM TRIGGERED.ON GEL BED FOR SKIN MANAGEMENT.DVT PUMP IN USED FOR DVT PROHYLAXIS.CALL LIGHT IN REACH,NEEDS ANTICIPATED.
[2019-10-08 20:00] VITALS: BP 134/60
[2019-10-08 20:27] VITALS: BP 134/69
[2019-10-09] MEDS: IV NS 0.9% 1,000 ML IV PRN ×2 (06:14→16:02)
--- NOTE | 2019-10-09 06:40 | NUR ---
MS RN NOTES SLEPT WELL AT NIGHT,REMAINS NON VERBAL,IVF INFUSING,SEEN BY DR LUNA,REPOSITION PER PROTOCOL.AFEBRILE,IN NO ACUTE DISTRESS.
[2019-10-09 06:44] LABS: BASOPHILS # (AUTO) 0.1 /CMM (0.0-0.2); BASOPHILS % (AUTO) 1.7 % (0.0-2.0); EOSINOPHILS % (AUTO) 3.1 % (0.0-6.0); HEMATOCRIT 37 % (33-45); HEMOGLOBIN 12.8 g/dL (11.5-14.8); LYMPHOCYTES # (AUTO) 1.5 /CMM (0.8-4.8); LYMPHOCYTES % (AUTO) 23.2 % (20.0-44.0); MEAN CORPUSCULAR HGB CONC 34 g/dl (31.0-36.0); MEAN CORPUSCULAR VOLUME 93 fL (82-100); MONOCYTES # (AUTO) 0.5 /CMM (0.1-1.30); MONOCYTES % (AUTO) 8.3 % (2.0-12.0); NEUTROPHILS # (AUTO) 4.2 /CMM (1.8-8.9); NEUTROPHILS % (AUTO) 63.7 % (43.0-81.0); PLATELET COUNT (AUTO) 255 /CMM (150-450); RED BLOOD CELL COUNT(AUTO) 4.02 MIL/uL (4.0-5.2); WHITE BLOOD COUNT (AUTO) 6.6 K/uL (4.3-11.0)
[2019-10-09 07:01] LABS: CALCIUM, SERUM 8.5 mg/dL (8.5-10.1); CREATININE 0.7 mg/dL (0.6-1.3); MAGNESIUM 2.2 mg/dL (1.8-2.4); PHOSPHORUS 3.1 mg/dL (2.5-4.9); POTASSIUM 3.5 mmol/L (3.5-5.1)
[2019-10-09] MEDS: LEVOTHYROXINE SODIUM 100 MCG TABLET PO SCH (07:50)
[2019-10-09 08:00] VITALS: BP 165/90
--- NOTE | 2019-10-09 08:00 | NUR ---
MS RN OPENING NOTES RECEIVED PATIENT IN BED, AOX1. NON VERBAL BUT RESPONDS WHEN CALLED HER NAME, SHE LOOKS AT ME. NO CARDIAC OR RESPIRATORY DISTRESS NOTED. NO SOB NOTED. SATURATING WELL ON ROOM AIR. IV ACCESS NOTED ON L HAND G22. INTACT AND PATENT. FLUSHING WELL. IN FLUIDS NS RUNNING AT 75ML/HR RATE.,SAFETY PRECAUTIONS IN PLACE. BED LOCKED AND IN LOW POSITION. SIDE RAILS UP X2. BED ALARM ON. CALL LIGHT WITHIN REACH.
[2019-10-09] MEDS: MULTIVIT W/MINERALS 1 TAB TABLET PO SCH (08:10)
[2019-10-09] MEDS: CHOLECALCIFEROL 1,000 UNIT TABLET (VIT D3) PO SCH (08:10)
[2019-10-09] MEDS: VITAMIN B COMP W-C 1 TAB TABLET PO SCH (08:10)
[2019-10-09] MEDS: RIVAROXABAN 10 MG TABLET PO SCH (08:10)
[2019-10-09] MEDS: DOCUSATE SODIUM 250 MG CAPSULE PO SCH (08:10)
[2019-10-09] MEDS: DONEPEZIL 5 MG TABLET PO SCH (08:10)
[2019-10-09] MEDS: POLYVINYL ALCOHOL/POVIDONE 0.4 ML DROPERETTE EACHEYE SCH ×4 (08:11→21:38)
[2019-10-09] MEDS ORDERED: ESCITALOPRAM OXALATE (10 MG) 10 MG TABLET PO SCH (09:00)
[2019-10-09] MEDS ORDERED: Medication Not On Formulary EA (Cranberry Extract (Cranberry) 425 MG) PO SCH (09:00)
--- NOTE | 2019-10-09 09:00 | NUR ---
TELE PT PLACED ON TELE MONITORING PER DR. DUNN ORDERS. SHOWING SINUS BEN WITH HR OF 58.
--- NOTE | 2019-10-09 09:45 | NUR ---
WOUND CARE CONSULT: PT PRESENTS WITH VERY STIFF CONTRACTED EXTREMITIES, PRESENT ON ADMISSION. PT IS INCONTINENT. RECOMMENDATIONS MADE FOR SKIN PROTECTION. DISCUSSED WITH NURSING STAFF. WILL SEE PRN. BECKHAM IN AGREEMENT WITH PLAN OF CARE.
[2019-10-09 14:09] LABS: IRON, SERUM 76 ug/dl (50-175); TOTAL IRON BINDING CAPACITY 216 ug/dl (250-450)
[2019-10-09 16:00] VITALS: BP 150/71
--- NOTE | 2019-10-09 18:13 | NUR ---
SUBMERSIBLE PILOT CLOSING NOTES RECEIVED PATIENT IN BED, AOX1. NON VERBAL BUT RESPONDS WHEN CALLED HER NAME, SHE LOOKS AT ME. NO CARDIAC OR RESPIRATORY DISTRESS NOTED. NO SOB NOTED. SATURATING WELL ON ROOM AIR. PT ON CARDIAC TELE MONITOR WITH SINUS BEN WITH HR OF 58. IV ACCESS NOTED ON L HAND G22. INTACT AND PATENT. FLUSHING WELL. IN FLUIDS NS RUNNING AT 75ML/HR RATE.,SAFETY PRECAUTIONS IN PLACE. BED LOCKED AND IN LOW POSITION. SIDE RAILS UP X2. BED ALARM ON. CALL LIGHT WITHIN REACH. WILL ENDORSE TO NEXT SHIFT.
[2019-10-09 19:00] LABS: FERRITIN 94 ng/mL (8-388); THYROID STIMULATING HORMONE 12.693 uIU/mL (0.358-3.74)
--- NOTE | 2019-10-09 19:05 | NUR ---
TRACTOR EXPERT NOTES RECEIVED PT IN BED AND AWAKE. PT OPENS EYES. RESPIRATIONS EVEN AND UNLABORED WITH NO S/S OF ACUTE DISTRESS OR SOB NOTED. NO S/S OF PAIN AT THIS TIME. PT NOTED WITH AMEENA #20G PATENT AND INTACT INFUSING NS @75CC/HR. SAFETY MEASURES IN PLACE WITH BED IN LOWEST LOCKED POSITION WITH SIDE RAILS UP X2. CALL LIGHT WITHIN REACH. WILL CONTINUE TO MONITOR.
[2019-10-09 20:00] VITALS: BP 120/71
[2019-10-10] VITALS: BP 156/78
--- NOTE | 2019-10-10 03:58 | NUR ---
ATTORNEY GENERAL NOTES LAB RESULTS BACK FOR BLOOD CULTURE PRELIMINARY, RESULTS OF GRAM + COCCI IN CLUSTERS, MADE AWARE, ORDER TO ENDORSE TO AM SHIFT. WILL CONTINUE TO MONITOR.
[2019-10-10 04:00] VITALS: BP 154/92
--- NOTE | 2019-10-10 06:56 | NUR ---
BULLDOZER ENGINEER NOTES PT IN BED AND AWAKE. PT OPENS EYES. RESPIRATIONS EVEN AND UNLABORED WITH NO S/S OF ACUTE DISTRESS OR SOB NOTED THROUGHOUT SHIFT. PT KEPT CLEAN, DRY, AND COMFORTABLE. NO S/S OF PAIN AT THIS TIME. PT NOTED WITH AMEENA #20G PATENT AND INTACT INFUSING NS @75CC/HR. SAFETY MEASURES IN PLACE WITH BED IN LOWEST LOCKED POSITION WITH SIDE RAILS UP X2. CALL LIGHT WITHIN REACH. WILL ENDORSE TO ONCOMING NURSE FOR CE.
--- NOTE | 2019-10-10 07:30 | NUR ---
TELE/RN OPENING NOTES Received patient in bed, A/O X 1. Non verbal, but eyes open to verbal and tactile stimulation. Breathing even and non-labored on RA, no SOB noted. No cardiac distress noted. On tele monitor, reading SR HR 61. No complaints of pain/discomfort noted. LUE contractures noted. Sensation from all peripheral extremities intact. IV access noted on L hand #20g, patent and intact, and flushing well. Fall precautions maintained. Will continue current medical management.
[2019-10-10 08:00] VITALS: BP 156/91
[2019-10-10] MEDS: CHOLECALCIFEROL 1,000 UNIT TABLET (VIT D3) PO SCH (08:37)
[2019-10-10] MEDS: DOCUSATE SODIUM 250 MG CAPSULE PO SCH (08:37)
[2019-10-10] MEDS: VITAMIN B COMP W-C 1 TAB TABLET PO SCH (08:37)
[2019-10-10] MEDS: LEVOTHYROXINE SODIUM 100 MCG TABLET PO SCH (08:38)
[2019-10-10] MEDS: MULTIVIT W/MINERALS 1 TAB TABLET PO SCH (08:38)
[2019-10-10] MEDS: POLYVINYL ALCOHOL/POVIDONE 0.4 ML DROPERETTE EACHEYE SCH ×4 (08:38→21:26)
[2019-10-10] MEDS: RIVAROXABAN 10 MG TABLET PO SCH (08:39)
[2019-10-10] MEDS: VALSARTAN 80 MG TABLET PO SCH (09:27)
--- NOTE | 2019-10-10 15:29 | NUR ---
RN NOTE DR DUNN IS MADE AWARE OF BLOOD CULTURE RESULT AND RECEIVED NEW ORDER OF ROCEPHIN 1 G Q24 HR. NOTED AND CARRIED OUT.
[2019-10-10 16:00] VITALS: BP 146/94
[2019-10-10] MEDS: CEFTRIAXONE 1 G in IV D5W 50 ML IV SCH (16:11)
--- NOTE | 2019-10-10 18:36 | NUR ---
MS/RN CLOSING NOTES Patient resting in bed, A/O X 1. Non verbal, but eyes open to verbal and tactile stimulation. No complaints of pain/discomfort noted. Breathing even and non-labored on RA, no SOB noted. No cardiac distress noted. Sensation from all peripheral extremities intact. IV access noted on L hand #20g, patent and intact, and flushing well. Received rocephin this afternoon. Fall precautions maintained. Will endorse rehabilitation worker nurse.
--- NOTE | 2019-10-10 19:05 | NUR ---
MS RN NOTES RECEIVED PT IN BED AND AWAKE. PT OPENS EYES. RESPIRATIONS EVEN AND UNLABORED WITH NO S/S OF ACUTE DISTRESS OR SOB NOTED. NO S/S OF PAIN AT THIS TIME. PT NOTED WITH AMEENA #20G PATENT AND INTACT AND SL. SAFETY MEASURES IN PLACE WITH BED IN LOWEST LOCKED POSITION WITH SIDE RAILS UP X2. CALL LIGHT WITHIN REACH. WILL CONTINUE TO MONITOR.
[2019-10-10 20:00] VITALS: BP 147/93
--- NOTE | 2019-10-11 06:52 | NUR ---
GLYCERIN OPERATOR NOTES PT IN BED AND AWAKE. PT OPENS EYES. RESPIRATIONS EVEN AND UNLABORED WITH NO S/S OF ACUTE DISTRESS OR SOB NOTED THROUGHOUT SHIFT. PT KEPT CLEAN, DRY, AND COMFORTABLE. NO S/S OF PAIN AT THIS TIME. PT NOTED WITH JULIUSAND #20G PATENT AND INTACT AND SL. SAFETY MEASURES IN PLACE WITH BED IN LOWEST LOCKED POSITION WITH SIDE RAILS UP X2. CALL LIGHT WITHIN REACH. WILL ENDORSE TO ONCOMING NURSE FOR CE.
--- NOTE | 2019-10-11 07:30 | NUR ---
MS/RN OPENING NOTES Received patient resting in bed with HOB elevated, A/O X 1. Upon verbalizing to patient, only eye opening response noted. Breathing even and non-labored on RA. No respiratory or cardiac distress noted. No s/s of pain/discomfort at this time. Sensation from all peripheral extremities intact. IV access noted on L hand #20g, patent and intact, and flushing well. Fall precautions maintained. Will continue current medical management.
[2019-10-11 08:00] VITALS: BP 176/71
[2019-10-11] MEDS: POLYVINYL ALCOHOL/POVIDONE 0.4 ML DROPERETTE EACHEYE SCH ×4 (08:24→22:09)
[2019-10-11] MEDS: DOCUSATE SODIUM 250 MG CAPSULE PO SCH (08:24)
[2019-10-11] MEDS: MULTIVIT W/MINERALS 1 TAB TABLET PO SCH (08:24)
[2019-10-11] MEDS: CHOLECALCIFEROL 1,000 UNIT TABLET (VIT D3) PO SCH (08:24)
[2019-10-11] MEDS: LEVOTHYROXINE SODIUM 100 MCG TABLET PO SCH (08:24)
[2019-10-11] MEDS: VITAMIN B COMP W-C 1 TAB TABLET PO SCH (08:24)
[2019-10-11] MEDS: VALSARTAN 80 MG TABLET PO SCH (08:45)
[2019-10-11] MEDS: RIVAROXABAN 10 MG TABLET PO SCH (08:48)
[2019-10-11] MEDS: AMLODIPINE BESYLATE 5 MG TABLET PO SCH (09:54)
[2019-10-11 16:00] VITALS: BP 129/77
[2019-10-11] MEDS: CEFTRIAXONE 1 G in IV D5W 50 ML IV SCH (16:03)
--- NOTE | 2019-10-11 18:00 | NUR ---
MS/RN OPENING NOTES Patient in bed, A/O X 1. Breathing even and non-labored on RA, no SOB noted. No or cardiac distress noted. No s/s of pain/discomfort at this time. Sensation from all peripheral extremities intact. IV access noted on L hand #20g, patent and intact, and flushing well. Fall precautions maintained. Will endorse to warehouse worker 2nd shift nurse.
--- NOTE | 2019-10-11 19:15 | NUR ---
MS/RN OPENING PM NOTES PATIENT IN BED, BEDSIDE REPORT RECIEVED FROM GIL MCWILLIAMS. PT A/OX1 BEING FED BY MANAGER FUNCTIONAL. IN NO APPARENT RESP DISTRESS. BREAHING EVEN AND UNLABORED ON RA. PATIENT DENIES PAIN AND HAS NO S/S OF APPARENT PAIN. IV TO LEFT FORE ARM 20 GAUGE FLUSHED PATENT INTACT NO S/S OF INFILTRATION. FALL PRECAUTIONS IN PLACE. BED DOWN LOCKED SRX3 CALL LIGHT WITHIN REACH WILL CONT TO MONITOR.
[2019-10-11 20:18] VITALS: BP 107/76
--- NOTE | 2019-10-12 06:23 | NUR ---
MS/RN CLOSING PM NOTE PATIENT IN BED. NO CHANGE IN CONDITION. IN NO APPARENT RESP DISTRESS. BREATHING EVEN AND UNLABORED ON RA. NO S/S OF APPARENT PAIN. IV TO LEFT FORE ARM 20 GAUGE FLUSHED PATENT INTACT NO S/S OF INFILTRATION. FALL PRECAUTIONS IN PLACE. BED DOWN LOCKED SRX3 CALL LIGHT WITHIN REACH
--- NOTE | 2019-10-12 07:36 | NUR ---
MS/RN OPENING PM NOTES PATIENT IN BED, BEDSIDE REPORT RECIEVED HEEL SPLITTER RN. PT A/OX1 REQUIRE TO BE FED BY PLUMBER APPRENTICE. IN NO APPARENT RESP DISTRESS. BREACHING EVEN AND UNLABORED ON RA. PATIENT NON VERBAL HAS NO S/S OF APPARENT PAIN. IV TO RIGHT HAND #20 GAUGE FLUSHED PATENT INTACT NO S/S OF INFILTRATION. FALL PRECAUTIONS IN PLACE. BED LOWEST POSITIONED SRX3 CALL LIGHT WITHIN REACH WILL CONT TO MONITOR.
[2019-10-12 08:00] VITALS: BP 138/94
[2019-10-12] MEDS: VITAMIN B COMP W-C 1 TAB TABLET PO SCH (08:09)
[2019-10-12] MEDS: LEVOTHYROXINE SODIUM 100 MCG TABLET PO SCH (08:09)
[2019-10-12] MEDS: MULTIVIT W/MINERALS 1 TAB TABLET PO SCH (08:10)
[2019-10-12] MEDS: DOCUSATE SODIUM 250 MG CAPSULE PO SCH (08:10)
[2019-10-12] MEDS: CHOLECALCIFEROL 1,000 UNIT TABLET (VIT D3) PO SCH (08:10)
[2019-10-12] MEDS: VALSARTAN 80 MG TABLET PO SCH (08:11)
[2019-10-12] MEDS: AMLODIPINE BESYLATE 5 MG TABLET PO SCH (08:11)
[2019-10-12] MEDS: POLYVINYL ALCOHOL/POVIDONE 0.4 ML DROPERETTE EACHEYE SCH ×3 (09:00→16:33)
[2019-10-12] MEDS ORDERED: CEFT1VIA15 IV (10:06)
[2019-10-12] MEDS ORDERED: LEVO500T2 PO (11:52)
[2019-10-12] MEDS: CEFTRIAXONE 1 G in IV D5W 50 ML IV SCH (15:45)
[2019-10-12 16:00] VITALS: BP 147/83
--- NOTE | 2019-10-12 16:28 | NUR ---
MS RN NOTES SPOKE TO JONATHAN CAPPS AT [facility]. REPORT GIVEN TO JONATHAN CAPPS. PATIENTS LEVAQUIN ALREADY ARRIVED AT THE FACILITY. ALSO NOTIFIED PATIENTS , PATIENT BEING DISCHARGED TODAY AT 5:00.
--- NOTE | 2019-10-12 17:30 | NUR ---
MS RN NOTES PATIENT DISCHARGED TO [facility] IN STABLE CONDITION. MD AWARE OF ALL ABNORMAL LABS AND TESTS. PERIPHERAL IV REMOVED WITH MINIMAL BLEEDING. ID BAND REMOVED. ALL BELONGINGS ACCOUNTED FOR. PATIENT DISCHARGE VIA AMBULANCE WITH EMT.
== END 2019-10-12 17:30 | DRG 871 ==
LOC: ER 10:29 → MED 13:38 → TELE 10-09 10:11 → MED 10-10 09:30
PROVIDERS: ADMIT Internal Medicine; ATTEND Internal Medicine
DX: A41.9 Sepsis, unspecified organism (principal); G92 Toxic encephalopathy; E43 Unspecified severe protein-calorie malnutrition; N39.0 Urinary tract infection, site not specified; E87.2 Acidosis; E86.0 Dehydration; E87.6 Hypokalemia; Z66 Do not resuscitate; I10 Essential (primary) hypertension; E03.9 Hypothyroidism, unspecified; F32.9 Major depressive disorder, single episode, unspecified; E88.09 Other disorders of plasma-protein metabolism, not elsewhere classified; Z86.73 Personal history of transient ischemic attack (TIA), and cerebral infarction without residual deficits; Z79.01 Long term (current) use of anticoagulants; Z87.440 Personal history of urinary (tract) infections; Z96.653 Presence of artificial knee joint, bilateral; F03.90 Unspecified dementia, unspecified severity, without behavioral disturbance, psychotic disturbance, mood disturbance, and anxiety; R00.1 Bradycardia, unspecified; D64.9 Anemia, unspecified
CPT/HCPCS: 36415; 71045-TC; 80048-TC; 80076-TC; 81000-TC; 82728-TC; 83540-TC; 83605-TC; 83735-TC; 84100-TC; 84439-TC; 84443-TC; 84484-TC; 85025-TC; 85730-TC; 87040-TC; 87081-TC; 87086-TC; 87186-TC; G0378; J0696; J3480; J7030; J7040; J7050; J7060